=== PATIENT | male | born 1985 | race Caucasian/White ===

== ENCOUNTER 2021-04-23 13:56 | Outpatient (REF) | payer OTHER, SELFPAY | END 2021-04-23 13:57 | disposition home or self-care (01) | LOC: HO.LNP 13:56 | PROVIDERS: Visit Provider Hospitalist | DX: B34.9 Viral infection, unspecified (principal); Z20.822 Contact with and (suspected) exposure to COVID-19 | CPT/HCPCS: U0003; U0005 ==

== ENCOUNTER 2021-08-13 15:07 | Outpatient (REF) | payer OTHER, SELFPAY ==
--- NOTE | ~2021-08-13 | XR_ITS ---
EXAMINATION: XR CHEST CLINICAL INFORMATION: Cough COMPARISON: None TECHNIQUE: 2 views of the chest were obtained. FINDINGS: No significant abnormality is noted involving the heart, lungs, mediastinum, bony thorax or soft tissues. XR/XR chest 2V IMPRESSION: Unremarkable examination.
== END 2021-08-13 15:08 | disposition home or self-care (01) ==
LOC: HO.HMGCX 15:07
PROVIDERS: Visit Provider Physician Assistant Medical
DX: R05.9 Cough, unspecified (principal)
CPT/HCPCS: 71046

== ENCOUNTER 2024-02-29 13:36 | Inpatient (IN) | payer OTHER, SELFPAY ==
[2024-02-29] VITALS (9 sets, daily range): BP systolic 118–168; BP diastolic 65–82; PULSE 86–121; RESP 13–30; TEMP 36.1–39.4; O2SAT 93–98; BMI 60.1
--- NOTE | ~2024-02-29 | US_ITS ---
EXAMINATION: US VENOUS ULTRASOUND WITH DOPPLER LOWER EXTREMITY, BILATERAL CLINICAL INFORMATION: Pain and swelling bilateral lower extremities COMPARISON: None available. TECHNIQUE: Ultrasound of the deep veins is performed from the hip to the calf with compression sonography and color and pulse Doppler assessment. Spectral analysis with color-flow imaging is performed. FINDINGS: RIGHT: There is normal venous compression and respiratory variation and augmented flow. The visualized common femoral vein, superficial femoral vein, profunda femoral vein, popliteal vein show no evidence of deep venous thrombosis. The calf veins are not visualized due to body habitus/swelling. LEFT: There is normal venous compression and respiratory variation and augmented flow. The visualized common femoral vein, superficial femoral vein, profunda femoral vein, popliteal vein, and the trifurcation region shows no evidence of deep venous thrombosis. The calf veins are not visualized due to body habitus/swelling. US/US venous duplex LE BI IMPRESSION: No DVT demonstrated in the bilateral lower extremities.
--- NOTE | ~2024-02-29 | XR_ITS ---
EXAMINATION: XR CHEST CLINICAL INFORMATION: Fever COMPARISON: 08/13/2021 TECHNIQUE: Frontal view of the chest was obtained. FINDINGS: No significant abnormality is noted involving the heart, lungs, mediastinum, bony thorax or soft tissues. XR/XR chest 1V IMPRESSION: Unremarkable examination.
--- NOTE | 2024-02-29 14:16 | ED_ITS ---
HPI - Fever General Chief Complaint: Fever Stated Complaint: SWELLING TO BLE,WKNSS,BRAIN FOG,LOSS OF APPETITE Time Seen by Provider: 02/29/24 13:45 Source: patient Mode of arrival: ambulatory Limitations: no limitations History of Present Illness ED Provider: PATY MITCHELL Narrative: 38 yo male with obesity, anxiety, remote PE not on DOAC for a few years, has had open sore on RLE he has been managing at home since the start of January last night he got abrupt onset of bodyaches, chills, some nausea and noted the area near his wound was much more red compared to baseline. He has swollen legs at baseline. MD elicited complaint: fever Onset (ago): day(s) (last night) Exacerbating factors: exertion Relieving factors: nothing Associated symptoms: chills, rigors, myalgias and nausea Treatments prior to arrival fever: none Related Data Home Medications ?Medication ?Instructions ?Recorded ?Confirmed bupropion HCl 150 mg tablet,12 hr 150 mg PO DAILY 08/13/21 sustained-release methylphenidate HCl 54 mg 54 mg PO QAM 08/13/21 tablet,extended release 24 hr Previous Rx's ?Medication ?Instructions ?Recorded albuterol sulfate 90 mcg/actuation 2 puff inhalation Q6H PRN 08/13/21 aerosol inhaler shortness of breath or wheezing #6.7 grams doxycycline hyclate 100 mg tablet 100 mg PO BID 7 days #14 tabs 08/13/21 prednisone 20 mg tablet 40 mg (2 x 20 mg) PO DAILY 5 days 08/13/21 #10 tabs Allergies Allergy/AdvReac Type Severity Reaction Status Date / Time dog dander Allergy Mild itching Verified 02/29/24 13:53 sneezing Review of Systems 2 Review of Systems: Constitutional : pos Fever, pos Chills ENT/Mouth : No sore throat, No Rhinorrhea Eyes: No Eye Pain, No Swelling, No Redness Cardiovascular : No Chest Pain, No SOB Respiratory : No Cough, No Sputum Gastrointestinal : No Nausea, No Vomiting, No Diarrhea, No abdominal Pain Genitourinary : No Dysuria, No Hematuria Musculoskeletal : No joint pain, No Myalgias, No Joint Swelling Skin : pos Skin Lesions, positive skin rash Neuro : No Weakness, No Numbness, No Headache Psych : No Anxiety, No Depression All other systems reviewed and are negative [facility] Past Medical History Attestation statement: The following information was validated with the patient. Source: old records reviewed Medical History Leg edema Obesity Pulmonary embolism Social History Social History Alcohol intake: current Patient Tobacco Use Status: Never used Tobacco Smoked in Last 30 Days: No Use of substances other than those prescribed or required for medical reasons: No Advance Directives: No Advance Directives Information Provided: No Do you have a plan to hurt others: No Plan Physical Exam 2 Vital Signs: Vital Signs: Last Vital Signs Temp 103 F H 02/29/24 13:47 Pulse 119 H 02/29/24 14:07 Resp 22 H 02/29/24 14:07 BP 153/69 H 02/29/24 14:07 Pulse Ox 96 02/29/24 14:07 O2 Del Method Room Air 02/29/24 14:07 BMI result Body Mass Index 60.1 Appearance: Alert. Oriented X3. No acute distress. Eyes: Pupils equal, round and reactive to light. ENT: Pharynx normal. Neck: Normal inspection. Neck supple. CVS: tachycardic heart rate and rhythm. Pulses normal. Respiratory: No respiratory distress. Breath sounds normal. Abdomen: Soft and nontender. obese Skin: Skin warm and dry. Normal skin color. Normal skin turgor. Extremities: 1-2+ bilateral pitting lower extremity edema. Heat, redness, ttp along R leg no abscess noted no crepitus. see pictures below Neuro: Oriented X 3. No motor deficit. No sensory deficit. Medications Administered Discontinued Medications Generic Name Dose Route Start Last Admin Trade Name Vladimir PRN Reason Stop Dose Admin Acetaminophen 650 mg 02/29/24 14:03 02/29/24 14:35 Acetaminophen 325 Mg Tablet PO 02/29/24 14:04 650 mg ONCE ONE Administration Sodium Chloride 500 mls @ 500 mls/hr 02/29/24 13:58 02/29/24 14:35 Ns IV 02/29/24 14:57 500 mls/hr .Q1H ONE Administration Piperacillin Sod/Tazobactam 50 mls @ 100 mls/hr 02/29/24 14:03 02/29/24 15:11 Sod 3.375 gm/ Sodium Chloride IV 02/29/24 14:32 Infused ONCE ONE Infusion Ondansetron HCl 4 mg 02/29/24 14:03 02/29/24 14:35 Ondansetron Hcl 4 Mg/2 Ml Vial IVPUSH 02/29/24 14:04 4 mg ONCE ONE Administration Medical Decision Making Medical Decision Making [facility] Narrative: 38 yo male with obesity, anxiety, remote PE not on DOAC for a few years now here with RLE cellulitis fevers and concern for infection - labs, lactic acid, cultures, empiric zosyn and DVT study ordered. Possible admit given workup but he is febrile tachycardic and suspect he might require IV antibiotics. Differential Diagnosis Differential Diagnoses: The differential diagnosis associated with the presentation includes cellulitis, fever, viral syndrome, DVT Admission/Observation Consideration of admission/observation: Escalation of care including admission/observation considered admit given sepsis and need for IV antibiotic Consult Healthcare Provider Management of the patient was discussed with: Hospitalist (will admit) Lab Data [facility] Lab Attestation statement: I reviewed the patient's lab results. 02/29/24 14:16 02/29/24 14:16 Labs: Lab Results 02/29/24 Range/Units 14:16 WBC 23.1 H (4.8-10.8) X10*3/uL RBC 5.25 (4.60-5.80) X10*6/uL Hgb 12.0 L (14.0-18.0) g/dl Hct 36.8 L (42.0-52.0) % MCV 70.1 L (80.0-98.0) fL MCH 22.9 L (27.0-33.0) pg MCHC 32.6 (31.0-36.0) g/dl RDW 17.3 H (11.0-16.0) % Plt Count 328 (160-400) X10*3/uL MPV 9.0 L (9.4-12.4) fL Immature Gran % (Auto) Cancelled Neut % (Auto) Cancelled Lymph % (Auto) Cancelled [place] % (Auto) Cancelled Eos % (Auto) Cancelled Baso % (Auto) Cancelled Lymph # (Auto) Cancelled [place] # (Auto) Cancelled Eos # (Auto) Cancelled Baso # (Auto) Cancelled Abs Immat Gran (auto) Cancelled Absolute Neuts (auto) Cancelled Absolute Nucleated RBC 0.000 (0.0-0.012) X10*3/uL Nucleated RBC % (auto) 0.0 (0.0-0.2) /100WBC Neutrophils % (Manual) 83 H (45-73) % Band Neutrophils % 12 H (3-5) % Lymphocytes % (Manual) 3 L (20-40) % Monocytes % (Manual) 1 L (2-11) % Basophils % (Manual) 1 (0-2) % Abs Neuts (Manual) 21.9 H (2.0-8.3) X10*3/uL Lymphocytes # (Manual) 0.7 L (1.2-4.9) X10*3/uL Monocytes # (Manual) 0.2 (0.1-1.2) X10*3/uL Basophils # (Manual) 0.2 (0.0-0.2) X10*3/uL Platelet Estimate NORMAL (NORMAL) Plt Morphology Comment NORMAL RBC Morphology NOTED Hypochromasia 1+ (5-14) /OIF Microcytosis 1+ (5-14) /OIF Sodium 137 (135-145) mmol/L Potassium 3.7 (3.3-5.1) mmol/L Chloride 105 (96-108) mmol/L Carbon Dioxide 21 L (22-29) mmol/L Anion Gap 15 (12-20) BUN 11 (9-16) mg/dL Creatinine 0.97 (0.5-1.4) mg/dL Estim Creat Clear Calc 196.0 Estimated GFR > 60 Random Glucose 128 H (60-115) mg/dL Lactic Acid 1.2 (0.5-2.0) mmol/L Calcium 8.6 (8.4-10.2) mg/dL Magnesium 1.7 (1.6-2.6) mg/dL Total Bilirubin 0.8 (0.0-1.0) mg/dL Direct Bilirubin 0.3 (0.0-0.5) mg/dL AST 21 (5-37) U/L ALT 31 (0-40) U/L Alkaline Phosphatase 62 (39-117) U/L Troponin I High Sens 4.5 (<3.5-35.0) ng/L B-Natriuretic Peptide 56 (<100) pg/mL Total Protein 8.5 H (6.5-8.0) g/dL Albumin 4.0 (3.5-5.0) g/dL Procalcitonin 1.65 ng/mL Influenza Type A (PCR) NEGATIVE (Negative) Influenza Type B (PCR) NEGATIVE (Negative) RSV RNA Qual (PCR) NEGATIVE (Negative) SARS-CoV-2 RNA (RT-PCR) NEGATIVE (Negative) Independent Interpretation I performed an independent interpretation of an: Plain X-Ray (no pneumonia) and Ultrasound (no DVT noted) Radiology Impression Discussion of test interpretation with radiology: I have reviewed the radiologist's reading. External Record Review External record reviewed: Outpatient record Critical Care Time Critical Care Time Critical Care Time: Yes Total Critical Care Time: 35 Attestation: review of records, sepsis protocol, admission I attest to this time spent taking care of the patient Discharge Plan Discharge Clinical Impression: Fever and chills Cellulitis Qualifiers: Site of cellulitis: extremity Site of cellulitis of extremity: lower extremity Laterality: right Qualified Code(s): L03.115 - Cellulitis of right lower limb Elevated WBC count Qualifiers: Leukocytosis type: bandemia Qualified Code(s): D72.825 - Bandemia Patient Disposition: Admitted As Inpatient Print Language: Kiswahili
[2024-02-29 14:27] LABS: Hematocrit 36.8 % (42.0-52.0); Mean Corpuscular HGB Conc 32.6 g/dl (31.0-36.0); Mean Corpuscular Hemoglobin 22.9 pg (27.0-33.0); Mean Corpuscular Volume 70.1 fL (80.0-98.0); Platelet Count 328 X10*3/uL (160-400); Red Blood Count 5.25 X10*6/uL (4.60-5.80); Red Cell Distribution Width 17.3 % (11.0-16.0); White Blood Count 23.1 X10*3/uL (4.8-10.8)
[2024-02-29] MEDS: 0.9 % Sodium Chloride 500 ML IV (14:35)
[2024-02-29] MEDS: Piperacillin Sodium/Tazobactam 3.375 GM in 0.9 % Sodium Chloride 50 ML IV (14:35)
[2024-02-29] MEDS: Acetaminophen 325 MG TABLET 650 MG PO ×2 (14:35→19:35)
[2024-02-29] MEDS: ondansetron HCL 4 MG/2 ML VIAL IVPUSH (14:35)
[2024-02-29 14:40] LABS: Lactic Acid 1.2 mmol/L (0.5-2.0)
[2024-02-29 14:48] LABS: B Type Natriuretic Peptide 56 pg/mL (<100); Troponin-I High Sensitivity 4.5 ng/L (<3.5-35.0)
[2024-02-29 14:52] LABS: Alanine Aminotransferase 31 U/L (0-40); Alkaline Phosphatase 62 U/L (39-117); Anion Gap 15 (12-20); Aspartate Amino Transferase 21 U/L (5-37); Bilirubin Direct 0.3 mg/dL (0.0-0.5); Bilirubin Total 0.8 mg/dL (0.0-1.0); Blood Urea Nitrogen 11 mg/dL (9-16); Calcium 8.6 mg/dL (8.4-10.2); Carbon Dioxide 21 mmol/L (22-29); Chloride 105 mmol/L (96-108); Estimated Glomerular Filt Rate > 60; Glucose Random 128 mg/dL (60-115); Magnesium 1.7 mg/dL (1.6-2.6); Neutrophils Percent Manual 83 % (45-73); Potassium 3.7 mmol/L (3.3-5.1); Sodium 137 mmol/L (135-145); Total Protein 8.5 g/dL (6.5-8.0)
[2024-02-29 14:53] LABS: Band Neutrophils Percent 12 % (3-5); Basophils Abs Manual 0.2 X10*3/uL (0.0-0.2); Basophils Percent Manual 1 % (0-2); Lymphocytes Absolute Manual 0.7 X10*3/uL (1.2-4.9); Lymphocytes Percent Manual 3 % (20-40); Monocytes Absolute Manual 0.2 X10*3/uL (0.1-1.2); Monocytes Percent Manual 1 % (2-11); Neutrophils Absolute Manual 21.9 X10*3/uL (2.0-8.3)
[2024-02-29 14:55] LABS: Microcytosis 1+ (5-14) /OIF; RBC Morphology NOTED
[2024-02-29 14:57] LABS: Hypochromasia 1+ (5-14) /OIF; Platelet Estimate NORMAL (NORMAL); Platelet Morphology Comment NORMAL
[2024-02-29 15:07] LABS: Procalcitonin 1.65 ng/mL
[2024-02-29 15:17] LABS: Influenza A PCR NEGATIVE (Negative); Influenza B PCR NEGATIVE (Negative); Resp Syncy Virus RNA Qual PCR NEGATIVE (Negative); SARS COV2 PCR INHOUSE NEGATIVE (Negative)
[2024-02-29] MEDS: vancomycin/NS 2,000 MG/500 ML PLAST..BAG 250 MG IV (15:25)
--- NOTE | 2024-02-29 16:01 | P.HPHOSP_ITS ---
History of Present Illness Date of Service: 02/29/24 Attending physician on admission: Vamsi Aguirre Chief Complaint: leg infection 38-year-old male with history of hypertension noncompliant with antihypertensive agents, prediabetes, depression, who is morbidly obese with BMI greater than 60 presented to the ED earlier today for evaluation of an infection in the right lower extremity. He states last night while at work, he began experiencing rigors and some confusion with pain in the right lower extremity. He states he has had a nonhealing ulcer in the right lower leg for about 2 months but denies any purulent drainage. No fevers, chills. No hx diabetes known. No known history of MRSA. No hx IVDA. Since arrival, pt has been febrile to 103, tachycardic to 121, no hypotension. He has a leukocytosis of 23 with 12% bandemia. Renal function is normal, electrolyte levels normal. Procalcitonin 1.65. Venous duplex negative for DVT in the bilateral lower extremities. Chest x-ray unremarkable. In the ED, has been given Tylenol, IV Zosyn, IV vancomycin, and IV fluids. He will be admitted for further management of cellulitis in the right lower extremity with sepsis. Review of Systems 2 Review of Systems: Yes all other systems are reviewed and are negative [facility] Medical History Prediabetes Hypertension Leg edema Obesity Pulmonary embolism Social History Alcohol intake: current Patient Tobacco Use Status: Never used Tobacco Smoked in Last 30 Days: No Use of substances other than those prescribed or required for medical reasons: No Advance Directives: No Advance Directives Information Provided: No Do you have a plan to hurt others: No Plan Meds Allergies Allergy/AdvReac Type Severity Reaction Status Date / Time dog dander Allergy Mild itching Verified 02/29/24 13:53 sneezing Active Medications: Current Medications Acetaminophen (Acetaminophen 325 Mg Tablet) 650 mg PO Q6H PRN PRN Reason: Pain, Mild (Pain Scale 1-3), fever or headache Calcium Carbonate (Calcium Carbonate 750 Mg Tab.Chew) 750 mg PO Q4H PRN PRN Reason: Heartburn Enoxaparin Sodium (Enoxaparin Sodium 40 Mg/0.4 Ml Syringe) 40 mg SUBCUT Q24H [facility] Vancomycin HCl (Vancomycin/Ns) 2,000 mg in 500 mls @ 250 mls/hr IV ONCE ONE Stop: 02/29/24 16:52 Last Admin: 02/29/24 15:25 Dose: 250 mls/hr Sodium Chloride (Ns) 1,000 mls @ 100 mls/hr IVCONT .Q10H [place] Stop: 03/01/24 01:29 Cefazolin Sodium/Dextrose (Ancef) 2 gm in 50 mls @ 100 mls/hr IV Q8H [facility] Magnesium Hydroxide (Milk Of Magnesia 30 Ml Oral.Susp) 30 ml PO DAILY PRN PRN Reason: Constipation Melatonin (Melatonin 3 Mg Tablet) 6 mg PO BEDTIME PRN PRN Reason: Insomnia Pharmacy Consult (Consult Rx Vancomycin Dosing) 1 each MISCELLANE DAILY PRN PRN Reason: Consult order Sodium Chloride (0.9 % Sodium Chloride Flush 3 Ml Syringe) 3 ml IVFLUSH QSHIFT [facility] Home Medications ?Medication ?Instructions ?Recorded ?Confirmed ?Last Taken ?Type bupropion HCl 150 mg tablet,12 hr 150 mg PO DAILY 08/13/21 Unknown History sustained-release methylphenidate HCl 54 mg 54 mg PO QAM 08/13/21 Unknown History tablet,extended release 24 hr lisinopril 20 1 tab PO DAILY 02/29/24 Unknown History mg-hydrochlorothiazide 12.5 mg tablet metformin 500 mg tablet 500 mg PO BID 02/29/24 Unknown History Physical Exam 2 Vital Signs and Narrative: Vital Signs: Last Vital Signs Temp 101 F H 02/29/24 15:58 Pulse 113 H 02/29/24 15:58 Resp 16 02/29/24 15:58 BP 131/71 02/29/24 15:58 Pulse Ox 95 02/29/24 15:58 O2 Del Method Room Air 02/29/24 15:58 BMI result Body Mass Index 60.1 Constitutional - Awake and Alert, No apparent distress Eyes - PERRLA, EOMI Cardiovascular - S1S2, RRR, No edema Respiratory - Normal lung expansion, Normal respiratory effort, No respiratory distress, CTA bilaterally Gastrointestinal - NT / ND; +BS; No rebound or guarding Extremities - no calf tenderness bilaterally, no swelling Skin - Warm/Dry. 3cm x 2.5 cm shallow venous ulcer and 1cm x 1cm venous ulcer right lower leg wihtout any purulent drainage with significant erythema and warmth from the R ankle to the R knee Neurological - Alert & oriented x3 Psychological - Appropriate affect Results Labs 02/29/24 14:16 02/29/24 14:16 Labs: Laboratory Results - last 24 hr 02/29/24 14:16 MCV 70.1 L MCH 22.9 L MCHC 32.6 RDW 17.3 H Plt Count 328 MPV 9.0 L Immature Gran % (Auto) Cancelled Neut % (Auto) Cancelled Lymph % (Auto) Cancelled [place] % (Auto) Cancelled Eos % (Auto) Cancelled Baso % (Auto) Cancelled Lymph # (Auto) Cancelled [place] # (Auto) Cancelled Eos # (Auto) Cancelled Baso # (Auto) Cancelled Abs Immat Gran (auto) Cancelled Absolute Neuts (auto) Cancelled Absolute Nucleated RBC 0.000 Nucleated RBC % (auto) 0.0 Neutrophils % (Manual) 83 H Band Neutrophils % 12 H Lymphocytes % (Manual) 3 L Monocytes % (Manual) 1 L Basophils % (Manual) 1 Abs Neuts (Manual) 21.9 H Lymphocytes # (Manual) 0.7 L Monocytes # (Manual) 0.2 Basophils # (Manual) 0.2 Platelet Estimate NORMAL Plt Morphology Comment NORMAL RBC Morphology NOTED Hypochromasia 1+ (5-14) Microcytosis 1+ (5-14) Anion Gap 15 Estim Creat Clear Calc 196.0 Estimated GFR > 60 Random Glucose 128 H Lactic Acid 1.2 Calcium 8.6 Magnesium 1.7 Total Bilirubin 0.8 Direct Bilirubin 0.3 AST 21 ALT 31 Alkaline Phosphatase 62 Troponin I High Sens 4.5 B-Natriuretic Peptide 56 Total Protein 8.5 H Albumin 4.0 Procalcitonin 1.65 Influenza Type A (PCR) NEGATIVE Influenza Type B (PCR) NEGATIVE RSV RNA Qual (PCR) NEGATIVE SARS-CoV-2 RNA (RT-PCR) NEGATIVE Imaging Radiologist's Impressions: Impressions Chest X-Ray 02/29/24 14:25 IMPRESSION: Unremarkable examination. Venous Duplex 02/29/24 14:49 IMPRESSION: No DVT demonstrated in the bilateral lower extremities. Assessment and Plan (1) Cellulitis: Qualifiers: Laterality: right Site of cellulitis: extremity Site of cellulitis of extremity: lower extremity Qualified Code(s): L03.115 - Cellulitis of right lower limb Status: Acute (2) Sepsis: Status: Acute Plan 38-year-old male with history of hypertension noncompliant with antihypertensive agents, remote hx PE no longer on ac, prediabetes, depression, who is morbidly obese with BMI greater than 60 admitted for further management of RLE cellulitis with sepsis. #RLE cellulitis with sepsis -leukocytosis 23, febrile to 103, tachycardic, tachypneic with 12% bandemia. No lactic acidosis or end-organ damage. No severe sepsis/shock -PCT 1.65. ESR/CRP pending -IV vancomycin and cefazolin (initiated 02/28) -MRSA nasal swab -wound care consult -follow CBC, cultures #Bilateral venous stasis dermatitis -technical support intern, plan as above # hypertension -noncompliant with antihypertensives. Was previously on lisinopril- hydrochlorothiazide. Consider resuming if remains hypertensive #Prediabetes -check hgb a1c #Depression -continue home meds #Morbid obesity -weight loss efforts discussed and encouraged dvt prophylaxis- lovenox full code pt requires inpt stay at least two midnights for management of extensive cellulitis involving 50% of extremity with sepsis in morbidly obese patient who will require iv abx and close monitoring of hemodynamics to prevent decompensation Quality Stroke Does the patient have a stroke diagnosis?: No VTE Prior VTE?: Yes VTE Risk Level:: Medical - moderate - high VTE Device Contraindication: Treatment Not Indicated VTE Drug Contraindication: N/A - Med Ordered
--- NOTE | 2024-02-29 16:19 | PHA.PROG ---
Admission Date/Time: February 29, 2024 15:57 Indication: Skin and skin structure Weight in k.3 kg Adjusted body weight in Kg: [place] body weight in Kg: Obesity Dosing Indication % IBW: BMI 60.1 Serum Creatinine - Last 168 Hours 02/29/24 14:16 Creatinine 0.97 Estimated CrCl and GFR - Last 168 Hours 02/29/24 14:16 Estim Creat Clear Calc 196.0 Estimated GFR > 60 Vancomycin Loading Dose: 2000 x1 Current Vancomycin Dosing Regimen: 1250 Q8H Vancomycin Monitoring using AUC goal of 400 - 600 range with trough as surrogate marker: 525 Date and Time for next Vancomycin Level to be drawn: 03/01 @1400 Pharmacist Comments on Vancomycin Plan: pt BMI is 60.1, stable renal function, predicted trough 17.2. Vancomycin dosing will take advantage of [employer] as a clinical decision support tool that uses Bayesian modeling to calculate individual patient's pharmacokinetic parameters and forecast the patient's drug concentration time course with the target goal AUC 24 range of 400 - 600 mg/L/hr.
[2024-02-29] MEDS: 0.9 % Sodium Chloride 1,000 ML 100 ML IVCONT (16:29)
[2024-02-29] MEDS: Enoxaparin Sodium 40 MG/0.4 ML SYRINGE SUBCUT (16:31)
--- NOTE | 2024-02-29 16:31 | PHA.MEDREC ---
Pharmacy Consult ? Medication Reconciliation Pharmacy has completed the medication reconciliation. Spoke to patient to confirm med list. Patient states he should be on Bupropion HCl 150 mg daily, Lisinopril HCTZ 20-12.5 mg daily, and Meformin 500 mg Bid, however he hasn't taken them in months. patient says not having his methylphenidate makes him forget to take his other medications. last claim date for Lisinapril and Metfromin was 05-23-23 and last fill for Methylphenidate was 01-10-2024.
[2024-02-29 16:58] LABS: Baso%MD 0.3 %; Eos%MD 0.2 %; IG%MD 0.8 %; Lymph%MD 3.6 %; Mono%MD 3.7 %; Neut%MD 91.4 %
[2024-02-29 17:03] LABS: C Reactive Protein 11.09 mg/dL (< or = 0.50)
[2024-02-29 17:47] LABS: Erythrocyte Sedimentation Rate 27 MM/HR (0-15)
[2024-02-29 18:23] LABS: MRSA Nasal PCR NEGATIVE (Negative); SA Nasal PCR NEGATIVE (Negative)
[2024-02-29] MEDS: ceFAZolin Sodium/Dextrose,Iso 2 GM/50 ML PIGGYBACK IV ×2 (18:39→23:48)
[2024-02-29] MEDS: Ibuprofen 800 MG TABLET PO (18:40)
--- NOTE | 2024-02-29 19:22 | PC.NURSE ---
this rn assumed care of pt, pt a&ox4, respirations even and unlabored. pt noted to be febrile at this time, pt previously received motrin; awaiting effects. pt sinus tachy on tele 110-115. provider aware of temperature.
[2024-02-29] MEDS: 0.9 % Sodium Chloride 1,000 ML 999 ML IV (19:35)
--- NOTE | 2024-02-29 19:36 | PC.NURSE ---
pt medicated per nov for fever, pt tolerated well with water. fluid bolus adminstered.
--- NOTE | 2024-02-29 20:52 | PC.NURSE ---
provider aware of pt reduced temperature.
[2024-03-01] VITALS (9 sets, daily range): BP systolic 132–146; BP diastolic 66–77; PULSE 78–113; RESP 14–20; TEMP 36.5–38.8; O2SAT 93–99
[2024-03-01] MEDS: vancomycin HCL 1,250 MG in 0.9 % Sodium Chloride 250 ML 166.67 MG IV ×2 (00:24→08:44)
[2024-03-01] MEDS: Acetaminophen 325 MG TABLET 650 MG PO ×3 (04:33→22:43)
[2024-03-01 06:16] LABS: MANUAL DIFF FLAG NO
[2024-03-01 06:20] LABS: Basophils Absolute Auto 0.1 X10*3/uL (0.0-0.2); Basophils Percent Auto 0.4 % (0-2); Eosinophils Absolute Auto 0.2 X10*3/uL (0.0-0.4); Eosinophils Percent Auto 1.3 % (0-4); Hematocrit 32.7 % (42.0-52.0); Hemoglobin 10.7 g/dl (14.0-18.0); Imm Gran Abs Auto 0.08 X10*3/uL (0.00-0.03); Imm Gran Pct Auto 0.6 % (0.0-0.4); Lymphocytes Absolute Auto 0.6 X10*3/uL (1.2-4.9); Mean Corpuscular HGB Conc 32.7 g/dl (31.0-36.0); Mean Corpuscular Hemoglobin 23.3 pg (27.0-33.0); Mean Corpuscular Volume 71.2 fL (80.0-98.0); Mean Platelet Volume 8.7 fL (9.4-12.4); Monocytes Absolute Auto 0.8 X10*3/uL (0.1-1.2); Monocytes Percent Auto 5.8 % (2-11); Neutrophils Absolute Auto 12.4 x10*3/uL (2.0-8.3); Neutrophils Percent Auto 87.9 % (45-73); Platelet Count 259 X10*3/uL (160-400); Red Blood Count 4.59 X10*6/uL (4.60-5.80); Red Cell Distribution Width 17.4 % (11.0-16.0); White Blood Count 14.1 X10*3/uL (4.8-10.8)
[2024-03-01 06:30] LABS: Estimated Average Glucose 131 mg/dL; Hemoglobin A1c % 6.2 % (<6.0)
[2024-03-01 06:36] LABS: Anion Gap 10 (12-20); Blood Urea Nitrogen 13 mg/dL (9-16); Carbon Dioxide 22 mmol/L (22-29); Chloride 109 mmol/L (96-108); Creatinine Clr Calc Pharmacy 200.1; Estimated Glomerular Filt Rate > 60; Glucose Random 123 mg/dL (60-115); Potassium 3.5 mmol/L (3.3-5.1); Sodium 137 mmol/L (135-145)
[2024-03-01] MEDS: 0.9 % Sodium Chloride Flush 3 ML SYRINGE IVFLUSH ×2 (08:46→15:50)
[2024-03-01 08:51] LABS: Appearance Urine Cloudy; Color Urine Dark Yellow; Glucose Urine UA Negative (Negative); Leukocyte Esterase Urine Negative (Negative); Nitrite Urine Negative (Negative); Specific Gravity - Urine >= 1.030 (1.005-1.025); UMIC TRIGGER UACC YES; Urine Blood Trace (Negative); Urine Ketones 15 mg/dL (Negative); Urine Protein 100 (2+) mg/dL (Neg-Trace)
[2024-03-01 08:55] LABS: Bacteria Urine None Seen (None Seen); Hyaline Casts Urine 0-2 /LPF (0-2); WBC Urine 0-5 /HPF (0-5)
--- NOTE | 2024-03-01 09:02 | MHC.CM.PN ---
PATIENT LIVES IN A HOME W/ HIS MOTHER. FUNCTIONALLY INDEPENDENT. DENIES USE OF DME OR SERVICES. PCP DAVID CHRISTIANSON MD NO HCP. CM PROVIDED EDUCATION AND OFFERED ASSISTANCE. PATIENT DECLINED, WOULD LIKE TO SPEAK W/ HIS MOTHER & SISTER PILI FIRST. DP: GOAL IS HOME SELF CARE. COUSIN TO TRANSPORT. CM WILL CONTINUE TO FOLLOW.
[2024-03-01] MEDS: ceFAZolin Sodium/Dextrose,Iso 2 GM/50 ML PIGGYBACK IV ×2 (11:01→18:29)
--- NOTE | 2024-03-01 14:13 | HO.PM.IMPN ---
Subjective Subjective Date of Service: 03/01/24 Interval History: Feeling better had low-grade fever last night continued to have right lower extremity redness, swelling and mild discomfort, denies nausea, no vomiting tolerating diet no acute issues overnight. Review of Systems All other system reviewed and negative. Physical Exam Vital Signs: Vital Signs: Last Vital Signs Temp 97.8 F 03/01/24 07:48 Pulse 88 03/01/24 07:48 Resp 15 03/01/24 07:48 BP 132/66 03/01/24 07:48 Pulse Ox 95 03/01/24 07:48 O2 Del Method Room Air 03/01/24 07:48 BMI result Body Mass Index 60.1 Const: Other: General awake alert x3, in no acute distress. Neck is supple no JVD. CVS regular rate rhythm, Respiratory lungs clear to auscultation, no respiratory distress, no wheeze, no rhonchi. Gastrointestinal abdomen soft, nontender, bowel sounds audible Extremities right lower extremity redness/swelling/warmth extending up to right knee. Left lower extremity swelling with no redness Neuro non focal Psych appropriate affect Objective Data Active Medications Acetaminophen (Acetaminophen 325 Mg Tablet) 650 mg PO Q6H PRN PRN Reason: Pain, Mild (Pain Scale 1-3) Last Admin: 03/01/24 04:33 Dose: 650 mg Documented By: CALVIN Calcium Carbonate (Calcium Carbonate 750 Mg Tab.Chew) 750 mg PO Q4H PRN PRN Reason: Heartburn Enoxaparin Sodium (Enoxaparin Sodium 40 Mg/0.4 Ml Syringe) 40 mg SUBCUT Q24H [facility] Last Admin: 02/29/24 16:31 Dose: 40 mg Documented By: DARRELL Vancomycin HCl 1,250 mg/ (Sodium Chloride) 250 mls @ 166.667 mls/hr IV Q8H [facility] Last Infusion: 03/01/24 10:25 Dose: Infused Documented By: CHAD Cefazolin Sodium/Dextrose (Ancef) 2 gm in 50 mls @ 100 mls/hr IV Q8H [facility] Last Infusion: 03/01/24 11:34 Dose: Infused Documented By: CHAD Ibuprofen (Ibuprofen 800 Mg Tablet) 800 mg PO Q8H PRN PRN Reason: Fever Last Admin: 02/29/24 18:40 Dose: 800 mg Documented By: DARRELL Magnesium Hydroxide (Milk Of Magnesia 30 Ml Oral.Susp) 30 ml PO DAILY PRN PRN Reason: Constipation Melatonin (Melatonin 3 Mg Tablet) 6 mg PO BEDTIME PRN PRN Reason: Insomnia Pharmacy Consult (Consult Rx Vancomycin Dosing) 1 each MISCELLANE DAILY PRN PRN Reason: Consult order Sodium Chloride (0.9 % Sodium Chloride Flush 3 Ml Syringe) 3 ml IVFLUSH QSHIFT [facility] Last Admin: 03/01/24 08:46 Dose: 3 ml Documented By: CHAD Labs 03/01/24 06:04 03/01/24 06:04 Labs: Laboratory Results - last 24 hr 02/29/24 02/29/24 03/01/24 14:16 16:44 06:04 MCV 70.1 L 71.2 L MCH 22.9 L 23.3 L MCHC 32.6 32.7 RDW 17.3 H 17.4 H Plt Count 328 259 MPV 9.0 L 8.7 L Immature Gran % (Auto) Cancelled 0.6 H Neut % (Auto) Cancelled 87.9 H Lymph % (Auto) Cancelled 4.0 L [place] % (Auto) Cancelled 5.8 Eos % (Auto) Cancelled 1.3 Baso % (Auto) Cancelled 0.4 Lymph # (Auto) Cancelled 0.6 L [place] # (Auto) Cancelled 0.8 Eos # (Auto) Cancelled 0.2 Baso # (Auto) Cancelled 0.1 Abs Immat Gran (auto) Cancelled 0.08 H Absolute Neuts (auto) Cancelled 12.4 H Absolute Nucleated RBC 0.000 0.000 Nucleated RBC % (auto) 0.0 0.0 Neutrophils % (Manual) 83 H Band Neutrophils % 12 H Lymphocytes % (Manual) 3 L Monocytes % (Manual) 1 L Basophils % (Manual) 1 Abs Neuts (Manual) 21.9 H Lymphocytes # (Manual) 0.7 L Monocytes # (Manual) 0.2 Basophils # (Manual) 0.2 Platelet Estimate NORMAL Plt Morphology Comment NORMAL RBC Morphology NOTED Hypochromasia 1+ (5-14) Microcytosis 1+ (5-14) ESR 27 H Anion Gap 15 10 L Estim Creat Clear Calc 196.0 200.1 Estimated GFR > 60 > 60 Random Glucose 128 H 123 H Estimat Average Glucose Hemoglobin A1c % Lactic Acid 1.2 Calcium 8.6 8.0 L D Magnesium 1.7 Total Bilirubin 0.8 Direct Bilirubin 0.3 AST 21 ALT 31 Alkaline Phosphatase 62 Troponin I High Sens 4.5 C-Reactive Protein 11.09 H B-Natriuretic Peptide 56 Total Protein 8.5 H Albumin 4.0 Procalcitonin 1.65 Urine Color Urine Appearance Urine pH Ur Specific [place] Urine Protein Urine Glucose (UA) Urine Ketones Urine Blood Urine Nitrite Ur Leukocyte Esterase Urine RBC Urine WBC Ur Squamous Epith Cells Urine Bacteria Hyaline Casts Nasal Screen MRSA (PCR) NEGATIVE Nasal S. aureus Screen NEGATIVE Nasal MRSA/S.aureus Interp SEE NOTE Influenza Type A (PCR) NEGATIVE Influenza Type B (PCR) NEGATIVE RSV RNA Qual (PCR) NEGATIVE SARS-CoV-2 RNA (RT-PCR) NEGATIVE 03/01/24 03/01/24 06:05 08:30 MCV MCH MCHC RDW Plt Count MPV Immature Gran % (Auto) Neut % (Auto) Lymph % (Auto) [place] % (Auto) Eos % (Auto) Baso % (Auto) Lymph # (Auto) [place] # (Auto) Eos # (Auto) Baso # (Auto) Abs Immat Gran (auto) Absolute Neuts (auto) Absolute Nucleated RBC Nucleated RBC % (auto) Neutrophils % (Manual) Band Neutrophils % Lymphocytes % (Manual) Monocytes % (Manual) Basophils % (Manual) Abs Neuts (Manual) Lymphocytes # (Manual) Monocytes # (Manual) Basophils # (Manual) Platelet Estimate Plt Morphology Comment RBC Morphology Hypochromasia Microcytosis ESR Anion Gap Estim Creat Clear Calc Estimated GFR Random Glucose Estimat Average Glucose 131 Hemoglobin A1c % 6.2 H Lactic Acid Calcium Magnesium Total Bilirubin Direct Bilirubin AST ALT Alkaline Phosphatase Troponin I High Sens C-Reactive Protein B-Natriuretic Peptide Total Protein Albumin Procalcitonin Urine Color Dark Yellow Urine Appearance Cloudy Urine pH 6.0 Ur Specific [place] >= 1.030 H Urine Protein 100 (2+) H Urine Glucose (UA) Negative Urine Ketones 15 Urine Blood Trace H Urine Nitrite Negative Ur Leukocyte Esterase Negative Urine RBC 11-20 H Urine WBC 0-5 Ur Squamous Epith Cells 11-20 Urine Bacteria None Seen Hyaline Casts 0-2 Nasal Screen MRSA (PCR) Nasal S. aureus Screen Nasal MRSA/S.aureus Interp Influenza Type A (PCR) Influenza Type B (PCR) RSV RNA Qual (PCR) SARS-CoV-2 RNA (RT-PCR) Assessment and Plan (1) Sepsis: Status: Acute (2) Fever and chills: Status: Acute (3) Elevated WBC count: Status: Acute Plan 38-year-old male with history of hypertension noncompliant with antihypertensive agents, remote hx PE no longer on ac, prediabetes, depression, who is morbidly obese with BMI greater than 60 admitted for further management of RLE cellulitis with sepsis. #RLE cellulitis with sepsis -on admission leukocytosis 23, febrile to 103, tachycardic, tachypneic with 12% bandemia. No lactic acidosis or end-organ damage. No severe sepsis/shock, PCT 1.65, ESR 27/CRP 11.09 -WBC trending down, no recurrent high-grade fevers -MRSA nasal swab negative -continue IV vancomycin and cefazolin (initiated 02/28), add IV Lasix -follow CBC, cultures, keep legs elevated -ID consult #Bilateral venous stasis dermatitis -wound care # hypertension -noncompliant with antihypertensives, Was previously on lisinopril-hydrochlorothiazide, blood pressure is stable, continue to monitor blood pressure. #Prediabetes -hgb a1c 6.2 recommend low-calorie diet and weight loss #Depression -stable, continue home meds #Morbid obesity -weight loss efforts discussed and encouraged dvt prophylaxis- lovenox full code pt requires continued inpt stay for management of extensive cellulitis involving 50% of extremity with sepsis in morbidly obese patient who will require iv abx and close monitoring of hemodynamics to prevent decompensation Quality Stroke Does the patient have a stroke diagnosis?: No VTE Prior VTE?: Yes VTE Risk Level:: Medical - moderate - high VTE Device Contraindication: Treatment Not Indicated VTE Drug Contraindication: N/A - Med Ordered
[2024-03-01] MEDS: Furosemide 20 MG/2 ML VIAL IVPUSH (14:38)
[2024-03-01] MEDS: Enoxaparin Sodium 40 MG/0.4 ML SYRINGE SUBCUT (15:49)
[2024-03-01] MEDS: vancomycin HCL 1,000 MG in 0.9 % Sodium Chloride 250 ML 270 MG IV (15:51)
[2024-03-02] MEDS: 0.9 % Sodium Chloride Flush 3 ML SYRINGE IVFLUSH ×4 (00:14→20:18)
[2024-03-02] MEDS: ceFAZolin Sodium/Dextrose,Iso 2 GM/50 ML PIGGYBACK IV ×2 (02:33→11:16)
[2024-03-02 02:59] VITALS: BP 154/75; PULSE 88; RESP 19; TEMP 36.1; O2SAT 96
[2024-03-02 06:29] LABS: Creatinine Clr Calc Pharmacy 226.3; Estimated Glomerular Filt Rate > 60
[2024-03-02 07:24] VITALS: BP 144/86; PULSE 87; RESP 20; TEMP 36.7; O2SAT 96
[2024-03-02] MEDS: vancomycin HCL 1,000 MG in 0.9 % Sodium Chloride 250 ML 270 MG IV ×2 (07:26)
--- NOTE | 2024-03-02 10:57 | MHC.CM.PN ---
EMR reviewed. Per MD rounds patient not medically cleared for dc. No change to dc plan. CM will continue to follow.
--- NOTE | 2024-03-02 13:22 | HO.PM.IMPN ---
Subjective Subjective Date of Service: 03/02/24 Interval History: Being followed for extensive right lower extremity cellulitis, complaining of feeling feverish, complaining of scratchy throat and swollen uvula, right lower extremity discomfort swelling and redness. Review of Systems All other system reviewed and are negative. Physical Exam Vital Signs: Vital Signs: Last Vital Signs Temp 98.0 F 03/02/24 07:24 Pulse 87 03/02/24 07:24 Resp 20 03/02/24 07:24 BP 144/86 H 03/02/24 07:24 Pulse Ox 96 03/02/24 07:24 O2 Del Method Room Air 03/02/24 07:24 BMI result Body Mass Index 60.1 Const: Other: General awake alert x3, in no acute distress. Neck is supple no JVD. CVS regular rate rhythm, Respiratory lungs clear to auscultation, no respiratory distress, no wheeze, no rhonchi. Gastrointestinal abdomen soft, nontender, bowel sounds audible Extremities stable right lower extremity redness/swelling/warmth extending up to right knee. Left lower extremity swelling with no redness Neuro non focal Psych appropriate affect Objective Data Active Medications Acetaminophen (Acetaminophen 325 Mg Tablet) 650 mg PO Q6H PRN PRN Reason: Pain, Mild (Pain Scale 1-3) Last Admin: 03/01/24 22:43 Dose: 650 mg Documented By: CALVIN Calcium Carbonate (Calcium Carbonate 750 Mg Tab.Chew) 750 mg PO Q4H PRN PRN Reason: Heartburn Enoxaparin Sodium (Enoxaparin Sodium 40 Mg/0.4 Ml Syringe) 40 mg SUBCUT Q24H [facility] Last Admin: 03/01/24 15:49 Dose: 40 mg Documented By: CHAD Linezolid (Zyvox/D5w) 600 mg in 300 mls @ 300 mls/hr IV Q12H [facility] Ibuprofen (Ibuprofen 800 Mg Tablet) 800 mg PO Q8H PRN PRN Reason: Fever Last Admin: 02/29/24 18:40 Dose: 800 mg Documented By: DARRELL Magnesium Hydroxide (Milk Of Magnesia 30 Ml Oral.Susp) 30 ml PO DAILY PRN PRN Reason: Constipation Melatonin (Melatonin 3 Mg Tablet) 6 mg PO BEDTIME PRN PRN Reason: Insomnia Pharmacy Consult (Consult Rx Vancomycin Dosing) 1 each MISCELLANE DAILY PRN PRN Reason: Consult order Sodium Chloride (0.9 % Sodium Chloride Flush 3 Ml Syringe) 3 ml IVFLUSH QSHIFT [facility] Last Admin: 03/02/24 07:30 Dose: 3 ml Documented By: CHAD Labs 03/01/24 06:04 03/02/24 05:29 Labs: Laboratory Results - last 24 hr 03/01/24 03/02/24 14:02 05:29 Hold Purple Top SEE NOTE Estim Creat Clear Calc 226.3 Estimated GFR > 60 Random Vancomycin 14.0 L Microbiology Microbiology Results: Microbiology 02/29/24 14:33 Blood Culture - Preliminary Blood - Venous No growth after 24 hours. 02/29/24 14:16 Blood Culture - Preliminary Blood - Venous No growth after 24 hours. Assessment and Plan (1) Sepsis: Status: Acute (2) Fever and chills: Status: Acute (3) Elevated WBC count: Status: Acute Plan 38-year-old male with history of hypertension noncompliant with antihypertensive agents, remote hx PE no longer on ac, prediabetes, depression, who is morbidly obese with BMI greater than 60 admitted for further management of RLE cellulitis with sepsis. #RLE cellulitis with sepsis -on admission leukocytosis 23, febrile to 103, tachycardic, tachypneic with 12% bandemia. No lactic acidosis or end-organ damage. No severe sepsis/shock, PCT 1.65, ESR 27/CRP 11.09 -WBC trending down, no recurrent high-grade fevers -MRSA nasal swab negative, blood cultures x2 negative -case discussed with ID will discontinue IV vancomycin and cefazolin and place patient on less linezolid 600 q.12 hours continue IV diuretics, keep leg elevated -follow CBC, cultures, #Bilateral venous stasis dermatitis -wound care pending # hypertension -noncompliant with antihypertensives, Was previously on lisinopril-hydrochlorothiazide, blood pressure is stable, continue to monitor blood pressure. #Prediabetes -hgb a1c 6.2 recommend low-calorie diet and weight loss #Depression -stable, continue home meds #Morbid obesity -weight loss efforts discussed and encouraged dvt prophylaxis- lovenox full code pt requires continued inpt stay for management of extensive cellulitis involving 50% of extremity with sepsis in morbidly obese patient who will require iv abx and close monitoring of hemodynamics to prevent decompensation Quality Stroke Does the patient have a stroke diagnosis?: No VTE Prior VTE?: Yes VTE Risk Level:: Medical - moderate - high VTE Device Contraindication: Treatment Not Indicated VTE Drug Contraindication: N/A - Med Ordered
[2024-03-02] MEDS: Linezolid/D5W 600 MG/300 ML PIGGYBACK 300 MG IV (13:58)
--- NOTE | 2024-03-02 14:01 | MHC.CLN ---
NUTRITION VISITED WITH PATIENT DUE TO [employer] CLEARING AGENT CONCERNED ABOUT PATIENT SELF LIMITING FOOD CHOICES. CHANGED DIET TO REGULAR, ADDED ENSURE MAX PROTEIN BID (300 KCALS, 60 G PROTEIN). PATIENT PARTICULAR ABOUT FOOD CHOICES. DOES NOT WANT SUGAR, CARBS, OR STARCHES. REPORTED FASTING BEHAVIOR WELL FOLLOWING KETOGENIC DIET AT TIMES. BMI=60.1. RD TO FOLLOW UP FOR INTAKE AND FOOD CHOICES.
[2024-03-02 14:14] LABS: Iron 8 mcg/dL (45-160); Percent Iron Saturation 4 % (15-50); Total Iron Binding Capacity 208 mcg/dL (228-428); Unsaturated Iron Binding 200 ug/dL
[2024-03-02 14:17] LABS: Vancomycin Random 9.8 mcg/mL (15-20)
[2024-03-02] MEDS: Enoxaparin Sodium 40 MG/0.4 ML SYRINGE SUBCUT (15:12)
[2024-03-02 15:26] VITALS: BP 154/76; PULSE 94; RESP 20; TEMP 36.9; O2SAT 96
[2024-03-02] MEDS: Acetaminophen 325 MG TABLET 650 MG PO (16:15)
[2024-03-02 17:05] VITALS: BP 154/76
[2024-03-02] MEDS: Furosemide 40 MG/4 ML VIAL IVPUSH (17:05)
[2024-03-02 19:34] VITALS: BP 142/84; PULSE 88; RESP 16; TEMP 36.7; O2SAT 97
--- NOTE | 2024-03-02 23:38 | P.CNID_ITS ---
History of Present Illness Data of Consult Service Date: 03/02/24 Primary Care Provider: Lalo Wiseman MD HPI Reason for consult: RLE cellulitis He presents with RLE redness on 02/28. He had right lesion on leg,open sore since 01/12. He has remote PE 02/27 he has body aches,chills and WBC 23.1, He has lymphedema. Review of Systems 2 Review of Systems: Yes all other systems are reviewed and are negative PMFSH Past Medical History Medical History Prediabetes Hypertension Leg edema Obesity Pulmonary embolism Family History Family history: reviewed and not pertinent Social History Social History Household Members Other:: mother Housing: House Do you presently have visiting nurse or other home services: No Alcohol intake: current Patient Tobacco Use Status: Never used Tobacco service: No Meds Allergies Allergy/AdvReac Type Severity Reaction Status Date / Time dog dander Allergy Mild itching Verified 02/29/24 13:53 sneezing Active Medications: Current Medications Acetaminophen (Acetaminophen 325 Mg Tablet) 650 mg PO Q6H PRN PRN Reason: Pain, Mild (Pain Scale 1-3) Last Admin: 03/02/24 16:15 Dose: 650 mg Calcium Carbonate (Calcium Carbonate 750 Mg Tab.Chew) 750 mg PO Q4H PRN PRN Reason: Heartburn Enoxaparin Sodium (Enoxaparin Sodium 40 Mg/0.4 Ml Syringe) 40 mg SUBCUT Q24H [facility] Last Admin: 03/02/24 15:12 Dose: 40 mg Furosemide (Furosemide 20 Mg/2 Ml Vial) 20 mg IVPUSH DAILY [facility]; Protocol Linezolid (Zyvox/D5w) 600 mg in 300 mls @ 300 mls/hr IV Q12H [facility] Last Infusion: 03/02/24 15:00 Dose: Infused Ibuprofen (Ibuprofen 800 Mg Tablet) 800 mg PO Q8H PRN PRN Reason: Fever Last Admin: 02/29/24 18:40 Dose: 800 mg Magnesium Hydroxide (Milk Of Magnesia 30 Ml Oral.Susp) 30 ml PO DAILY PRN PRN Reason: Constipation Melatonin (Melatonin 3 Mg Tablet) 6 mg PO BEDTIME PRN PRN Reason: Insomnia Sodium Chloride (0.9 % Sodium Chloride Flush 3 Ml Syringe) 3 ml IVFLUSH QSHIFT [facility] Last Admin: 03/02/24 20:18 Dose: 3 ml Home Medications ?Medication ?Instructions ?Recorded ?Confirmed ?Last Taken ?Type No Known Home Meds 02/29/24 02/29/24 Unknown History Physical Exam 2 Vital Signs: Vital Signs: Last Vital Signs Temp 98.1 F 03/02/24 19:34 Pulse 88 03/02/24 19:34 Resp 16 03/02/24 19:34 BP 142/84 H 03/02/24 19:34 Pulse Ox 97 03/02/24 19:34 O2 Del Method Room Air 03/02/24 19:34 BMI result Body Mass Index 60.1 Const: General: cooperative HEENT: Head: Yes normal to inspection Face and sinus: Yes normal facial exam Mouth: Normal oral and palatal mucosa present Teeth and gingiva: d entition normal Eyes: General: appearance normal, both eyes and all related structures P upils: Equal, round and reactive pupils present Resp: Effort & Inspection: normal respiratory effort Cardio: Rate: regular rate Rhythm: regular rhythm GI: Palpation (GI): Soft to palpation and nontender : General: Yes no CVA tenderness Back/Spine/Pelvis: Back: no CVA tenderness Skin: General skin exam: no rashes or lesions noted Neuro: General: moves all extremities Cranial nerves: Yes Equal, round and reactive pupils present Extrem: Other: reddened legs superficial ulcer 3 x5 cm Psych: Appearance: grossly normal Results Labs 03/01/24 06:04 03/02/24 05:29 Labs: BMP 03/02/24 05:29 Creatinine 0.84 Microbiology Microbiology Results: Microbiology 02/29/24 14:33 Blood - Venous Blood Culture - Preliminary No growth after 48 hours. 02/29/24 14:16 Blood - Venous Blood Culture - Preliminary No growth after 48 hours. Assessment and Plan (1) Sepsis: Status: Acute (2) Elevated WBC count: Qualifiers: Leukocytosis type: bandemia Qualified Code(s): D72.825 - Bandemia Status: Acute (3) Cellulitis: Qualifiers: Laterality: right Site of cellulitis: extremity Site of cellulitis of extremity: lower extremity Qualified Code(s): L03.115 - Cellulitis of right lower limb Status: Acute Plan He has sepsis Leg source Lymphedema care, see Vascular linezolid 600 mg IV every 12h,switch to po for 10 day
[2024-03-03] VITALS (7 sets, daily range): BP systolic 132–145; BP diastolic 72–88; PULSE 80–92; RESP 18–22; TEMP 36.3–36.7; O2SAT 94–96
[2024-03-03] MEDS: Linezolid/D5W 600 MG/300 ML PIGGYBACK 300 MG IV ×2 (01:46→13:05)
[2024-03-03 06:26] LABS: Creatinine Clr Calc Pharmacy 231.9; Estimated Glomerular Filt Rate > 60
[2024-03-03] MEDS: Furosemide 20 MG/2 ML VIAL IVPUSH ×2 (08:30→14:38)
[2024-03-03] MEDS: 0.9 % Sodium Chloride Flush 3 ML SYRINGE IVFLUSH ×2 (08:30→16:39)
--- NOTE | 2024-03-03 13:55 | HO.PM.IMPN ---
Subjective Subjective Date of Service: 03/03/24 Interval History: Being followed for extensive right lower extremity cellulitis Persistent right lower extremity swelling, redness, no fevers, no chills, tolerating diet no other acute issues. Review of Systems All other system reviewed and are negative Physical Exam Vital Signs: Vital Signs: Last Vital Signs Temp 97.6 F 03/03/24 07:58 Pulse 80 03/03/24 07:58 Resp 22 H 03/03/24 07:58 BP 132/88 03/03/24 08:30 Pulse Ox 94 03/03/24 07:58 O2 Del Method Room Air 03/03/24 07:58 BMI result Body Mass Index 60.1 Const: Other: General awake alert x3, in no acute distress. Neck is supple no JVD. CVS regular rate rhythm, Respiratory lungs clear to auscultation, no respiratory distress, no wheeze, no rhonchi. Gastrointestinal abdomen soft, nontender, bowel sounds audible Extremities stable right lower extremity redness/swelling/warmth extending up to right knee. Left lower extremity swelling with no redness, small oval raised area lateral surface of right leg with no drainage, no abscess or induration. Neuro non focal Psych appropriate affect Objective Data Active Medications Acetaminophen (Acetaminophen 325 Mg Tablet) 650 mg PO Q6H PRN PRN Reason: Pain, Mild (Pain Scale 1-3) Last Admin: 03/02/24 16:15 Dose: 650 mg Documented By: CHAD Calcium Carbonate (Calcium Carbonate 750 Mg Tab.Chew) 750 mg PO Q4H PRN PRN Reason: Heartburn Enoxaparin Sodium (Enoxaparin Sodium 40 Mg/0.4 Ml Syringe) 40 mg SUBCUT Q24H [facility] Last Admin: 03/02/24 15:12 Dose: 40 mg Documented By: CHAD Furosemide (Furosemide 20 Mg/2 Ml Vial) 20 mg IVPUSH DAILY [facility]; Protocol Last Admin: 03/03/24 08:30 Dose: 20 mg Documented By: RADHA Linezolid (Zyvox/D5w) 600 mg in 300 mls @ 300 mls/hr IV Q12H [facility] Last Admin: 03/03/24 13:05 Dose: 300 mls/hr Documented By: RADHA Ibuprofen (Ibuprofen 800 Mg Tablet) 800 mg PO Q8H PRN PRN Reason: Fever Last Admin: 02/29/24 18:40 Dose: 800 mg Documented By: DARRELL Magnesium Hydroxide (Milk Of Magnesia 30 Ml Oral.Susp) 30 ml PO DAILY PRN PRN Reason: Constipation Melatonin (Melatonin 3 Mg Tablet) 6 mg PO BEDTIME PRN PRN Reason: Insomnia Sodium Chloride (0.9 % Sodium Chloride Flush 3 Ml Syringe) 3 ml IVFLUSH QSHIFT [facility] Last Admin: 03/03/24 08:30 Dose: 3 ml Documented By: RADHA Labs 03/01/24 06:04 03/03/24 05:28 Labs: Laboratory Results - last 24 hr 03/02/24 03/02/24 03/03/24 05:29 13:53 05:28 Hold Purple Top SEE NOTE Estim Creat Clear Calc 231.9 Estimated GFR > 60 Iron 8 L TIBC 208 L % Saturation 4 L Unsat Iron Binding 200 Random Vancomycin 9.8 L Microbiology Microbiology Results: Microbiology 02/29/24 14:33 Blood Culture - Preliminary Blood - Venous No growth after 48 hours. 02/29/24 14:16 Blood Culture - Preliminary Blood - Venous No growth after 48 hours. Assessment and Plan (1) Sepsis: Status: Acute (2) Fever and chills: Status: Acute (3) Elevated WBC count: Status: Acute Plan 38-year-old male with history of hypertension noncompliant with antihypertensive agents, remote hx PE no longer on ac, prediabetes, depression, who is morbidly obese with BMI greater than 60 admitted for further management of RLE cellulitis with sepsis. # extensive acute RLE cellulitis extending from right ankle to right medial thigh with sepsis -on admission leukocytosis 23, febrile to 103, tachycardic, tachypneic with 12% bandemia. No lactic acidosis or end-organ damage. No severe sepsis/shock, PCT 1.65, ESR 27/CRP 11.09 -WBC trending down, no recurrent high-grade fevers, redness and swelling gradually improving -MRSA nasal swab negative, blood cultures x2 negative times 48 hours -case discussed with ID will discontinue IV vancomycin and cefazolin after [address] patient on less linezolid 600 q.12 hours on 03/02 continue IV diuretics, keep leg elevated -follow CBC and clinical course #Bilateral venous stasis dermatitis -wound care pending # hypertension -noncompliant with antihypertensives, Was previously on lisinopril-hydrochlorothiazide, blood pressure is stable, continue to monitor blood pressure. #Prediabetes -hgb a1c 6.2 recommend low-calorie diet and weight loss, being followed by cogeneration operator #Depression -stable, continue home meds #Morbid obesity -weight loss efforts discussed and encouraged dvt prophylaxis- lovenox full code pt requires continued inpt stay for management of extensive cellulitis involving 50% of extremity with sepsis in morbidly obese patient who will require iv abx and close monitoring of hemodynamics to prevent decompensation Quality Stroke Does the patient have a stroke diagnosis?: No VTE Prior VTE?: Yes VTE Risk Level:: Medical - moderate - high VTE Device Contraindication: Treatment Not Indicated VTE Drug Contraindication: N/A - Med Ordered
[2024-03-03] MEDS: Enoxaparin Sodium 40 MG/0.4 ML SYRINGE SUBCUT (16:38)
[2024-03-04] MEDS: 0.9 % Sodium Chloride Flush 3 ML SYRINGE IVFLUSH ×3 (01:26→17:41)
[2024-03-04] MEDS: Linezolid/D5W 600 MG/300 ML PIGGYBACK 300 MG IV ×2 (01:30→13:28)
[2024-03-04 02:57] VITALS: BP 129/65; PULSE 94; RESP 20; TEMP 36.3; O2SAT 96
[2024-03-04 07:03] LABS: Hemoglobin 10.8 g/dl (14.0-18.0); Mean Corpuscular HGB Conc 32.7 g/dl (31.0-36.0); Mean Corpuscular Hemoglobin 23.1 pg (27.0-33.0); Mean Corpuscular Volume 70.7 fL (80.0-98.0); Platelet Count 298 X10*3/uL (160-400); Red Blood Count 4.67 X10*6/uL (4.60-5.80); Red Cell Distribution Width 17.2 % (11.0-16.0); White Blood Count 9.7 X10*3/uL (4.8-10.8)
[2024-03-04 07:16] LABS: Anion Gap 13 (12-20); Blood Urea Nitrogen 12 mg/dL (9-16); Calcium 8.8 mg/dL (8.4-10.2); Carbon Dioxide 23 mmol/L (22-29); Chloride 106 mmol/L (96-108); Creatinine Clr Calc Pharmacy 231.9; Estimated Glomerular Filt Rate > 60; Glucose Random 94 mg/dL (60-115); Potassium 3.3 mmol/L (3.3-5.1); Sodium 139 mmol/L (135-145)
[2024-03-04 07:34] VITALS: BP 144/66; PULSE 82; RESP 18; TEMP 36.5; O2SAT 97
[2024-03-04 09:41] VITALS: BP 144/66
[2024-03-04] MEDS: Furosemide 20 MG/2 ML VIAL 40 MG IVPUSH (09:41)
--- NOTE | 2024-03-04 11:11 | MHC.CM.PN ---
EMR reviewed. Patient not medically cleared for dc at this time. CM will continue to follow.
--- NOTE | 2024-03-04 13:32 | HO.PM.IMPN ---
Subjective Subjective Date of Service: 03/04/24 Interval History: Like continues to be red and warm to touch. Patient does note mild improvement Review of Systems Denies chest pain Denies shortness of breath Denies nausea vomiting diarrhea Denies fever chills Physical Exam Vital Signs: Vital Signs: Last Vital Signs Temp 97.7 F 03/04/24 07:34 Pulse 82 03/04/24 07:34 Resp 18 03/04/24 07:34 BP 144/66 H 03/04/24 09:41 Pulse Ox 97 03/04/24 07:34 O2 Del Method Room Air 03/04/24 07:34 O2 Flow Rate 92 03/03/24 16:00 BMI result Body Mass Index 60.1 Const: Other: Awake alert no acute distress Resp: Other: Clear to auscultation bilaterally no rales rhonchi or wheezes Cardio: Other: No S4; positive S1-S2; no S3 murmurs rubs or gallops GI: Other: Soft nontender nondistended normoactive bowel sounds Extrem: Other: Right lower extremity edematous with erythema and warmth; improved secondary to border tracing Objective Data Active Medications Acetaminophen (Acetaminophen 325 Mg Tablet) 650 mg PO Q6H PRN PRN Reason: Pain, Mild (Pain Scale 1-3) Last Admin: 03/02/24 16:15 Dose: 650 mg Documented By: CHAD Calcium Carbonate (Calcium Carbonate 750 Mg Tab.Chew) 750 mg PO Q4H PRN PRN Reason: Heartburn Enoxaparin Sodium (Enoxaparin Sodium 40 Mg/0.4 Ml Syringe) 40 mg SUBCUT Q24H [facility] Last Admin: 03/03/24 16:38 Dose: 40 mg Documented By: RADHA Furosemide (Furosemide 20 Mg/2 Ml Vial) 40 mg IVPUSH DAILY [facility]; Protocol Last Admin: 03/04/24 09:41 Dose: 40 mg Documented By: ARTHUR Linezolid (Zyvox/D5w) 600 mg in 300 mls @ 300 mls/hr IV Q12H [facility] Last Admin: 03/04/24 13:28 Dose: 300 mls/hr Documented By: MONICO Ibuprofen (Ibuprofen 800 Mg Tablet) 800 mg PO Q8H PRN PRN Reason: Fever Last Admin: 02/29/24 18:40 Dose: 800 mg Documented By: DARRELL Magnesium Hydroxide (Milk Of Magnesia 30 Ml Oral.Susp) 30 ml PO DAILY PRN PRN Reason: Constipation Melatonin (Melatonin 3 Mg Tablet) 6 mg PO BEDTIME PRN PRN Reason: Insomnia Sodium Chloride (0.9 % Sodium Chloride Flush 3 Ml Syringe) 3 ml IVFLUSH QSHIFT [facility] Last Admin: 03/04/24 09:42 Dose: 3 ml Documented By: ARTHUR Labs 03/04/24 05:49 03/04/24 05:49 Labs: Laboratory Results - last 24 hr 03/04/24 05:49 MCV 70.7 L MCH 23.1 L MCHC 32.7 RDW 17.2 H Plt Count 298 MPV 9.0 L Absolute Nucleated RBC 0.000 Nucleated RBC % (auto) 0.0 Anion Gap 13 Estim Creat Clear Calc 231.9 Estimated GFR > 60 Random Glucose 94 Calcium 8.8 D Assessment and Plan (1) Sepsis: Status: Acute (2) Cellulitis: Status: Acute Plan 38-year-old male with history of hypertension noncompliant with antihypertensive agents, remote hx PE no longer on ac, prediabetes, depression, who is morbidly obese with BMI greater than 60 admitted for further management of RLE cellulitis with sepsis. 1.Extensive acute RLE cellulitis -sepsis resolved -WBC trending down, no recurrent high-grade fevers, redness and swelling gradually improving -MRSA nasal swab negative, blood cultures x2 negative times 48 hours - linezolid 600 q.12 hours on 03/02 continue IV diuretics, keep leg elevated -follow CBC and clinical course 2.Bilateral venous stasis dermatitis -wound care pending 3.Hypertension -noncompliant with antihypertensives, Was previously on lisinopril-hydrochlorothiazide, blood pressure is stable, continue to monitor blood pressure. Lovenox Full code pt requires continued inpt stay for management of extensive cellulitis involving 50% of extremity with sepsis in morbidly obese patient who will require iv abx and close monitoring of hemodynamics to prevent decompensation Quality Stroke Does the patient have a stroke diagnosis?: No VTE Prior VTE?: Yes VTE Risk Level:: Medical - moderate - high VTE Device Contraindication: Treatment Not Indicated VTE Drug Contraindication: N/A - Med Ordered
[2024-03-04 15:57] VITALS: BP 136/72; PULSE 94; RESP 20; TEMP 36.3; O2SAT 95
--- NOTE | 2024-03-04 16:06 | HO.WOUND ---
Wound Consult: Initial 38yr old?Male admitted to [facility] on 02/29/24 - See progress notes and H&P for detailed history.? Wound consult placed for RLE.? Patient agreeable to assessment and photo documentation.? Patient bilateral lower legs significantly elevate in recliner chair along with pillows. Significant swelling noted - however patient reports significant improvement - reports improved erythema and swelling. The patient reports he has chronic swelling and lower leg edema previously resulting in wounds. He reports she treats with [employer] size G and ointments when open wounds arise. Currently right leg has intact stable dry scab in place - no drainage is noted - able to palpate and no fluctuance noted. Patient requests no dressing at this time as the areas he feels is healing and does not want to disrupt the healing process. Topical recommendations made below should the scab soften and wound bed open. Right Lateral Lower Leg Etiology: ?Venous wound Measurements: 2cm x 2cm x 0.1cm Wound Bed: Dry stable adherent scab noted Drainage / Odor: None noted Edges: ? irregular and attached [place] wound: ? Red erythema - improving her pt statement - swelling noted - No Induration, Fluctuance noted Pain: mild pain reported Goals of Treatment: ? Elevate lower legs and moisturize lower legs to keep tissue healthy Recommendations: Bilateral Lower Legs - Elevate lower Legs with pillows. Cleanse with Ph Balanced Thom [place], pat dry. if scab opens or drainage is noted apply xeroform to open wound bed cover with dry gauze, abd pad and gauze wrap, Change Daily.
[2024-03-04] MEDS: Enoxaparin Sodium 40 MG/0.4 ML SYRINGE SUBCUT (17:40)
[2024-03-04] MEDS: Acetaminophen 325 MG TABLET 650 MG PO (17:40)
[2024-03-04 20:00] VITALS: BP 135/71; PULSE 85; RESP 18; TEMP 36.1; O2SAT 96
[2024-03-05] MEDS: Linezolid/D5W 600 MG/300 ML PIGGYBACK 300 MG IV ×2 (01:16→13:17)
[2024-03-05] MEDS: 0.9 % Sodium Chloride Flush 3 ML SYRINGE IVFLUSH ×3 (01:16→17:07)
[2024-03-05 03:25] VITALS: BP 134/67; PULSE 78; RESP 18; TEMP 36.8; O2SAT 95
[2024-03-05 07:38] VITALS: BP 139/61; PULSE 84; RESP 17; TEMP 36.8; O2SAT 95
[2024-03-05 08:15] VITALS: BP 139/61
[2024-03-05] MEDS: Furosemide 20 MG/2 ML VIAL 40 MG IVPUSH (08:15)
--- NOTE | 2024-03-05 14:35 | P.PNIM_ITS ---
Subjective Subjective Date of Service: 03/05/24 Interval History: Slowly improving. Remains afebrile Review of Systems Denies chest pain Denies shortness of breath Denies nausea vomiting diarrhea Denies fever chills Physical Exam 2 Vital Signs: Vital Signs: Last Vital Signs Temp 98.3 F 03/05/24 07:38 Pulse 84 03/05/24 07:38 Resp 17 03/05/24 07:38 BP 139/61 03/05/24 08:15 Pulse Ox 95 03/05/24 07:38 O2 Del Method Room Air 03/05/24 07:38 O2 Flow Rate 92 03/03/24 16:00 BMI result Body Mass Index 60.1 Const: Other: Awake alert no acute distress Resp: Other: Clear to auscultation bilaterally no rales rhonchi or wheezes Cardio: Other: No S4; positive S1-S2; no S3 murmurs rubs or gallops GI: Other: Soft nontender nondistended normoactive bowel sounds Extrem: Other: Right lower extremity edematous with erythema and warmth; improved secondary to border tracing Objective Data Active Medications Acetaminophen (Acetaminophen 325 Mg Tablet) 650 mg PO Q6H PRN PRN Reason: Pain, Mild (Pain Scale 1-3) Last Admin: 03/04/24 17:40 Dose: 650 mg Documented By: MONICO Calcium Carbonate (Calcium Carbonate 750 Mg Tab.Chew) 750 mg PO Q4H PRN PRN Reason: Heartburn Enoxaparin Sodium (Enoxaparin Sodium 40 Mg/0.4 Ml Syringe) 40 mg SUBCUT Q24H [facility] Last Admin: 03/04/24 17:40 Dose: 40 mg Documented By: MONICO Furosemide (Furosemide 20 Mg/2 Ml Vial) 40 mg IVPUSH DAILY [facility]; Protocol Last Admin: 03/05/24 08:15 Dose: 40 mg Documented By: TADEO Linezolid (Zyvox/D5w) 600 mg in 300 mls @ 300 mls/hr IV Q12H [facility] Last Infusion: 03/05/24 14:27 Dose: Infused Documented By: TADEO Ibuprofen (Ibuprofen 800 Mg Tablet) 800 mg PO Q8H PRN PRN Reason: Fever Last Admin: 02/29/24 18:40 Dose: 800 mg Documented By: DARRELL Magnesium Hydroxide (Milk Of Magnesia 30 Ml Oral.Susp) 30 ml PO DAILY PRN PRN Reason: Constipation Melatonin (Melatonin 3 Mg Tablet) 6 mg PO BEDTIME PRN PRN Reason: Insomnia Sodium Chloride (0.9 % Sodium Chloride Flush 3 Ml Syringe) 3 ml IVFLUSH QSHIFT [facility] Last Admin: 03/05/24 08:15 Dose: 3 ml Documented By: TADEO Labs 03/04/24 05:49 03/04/24 05:49 Assessment and Plan (1) Cellulitis: Status: Acute Plan 38-year-old male with history of hypertension noncompliant with antihypertensive agents, remote hx PE no longer on ac, prediabetes, depression, who is morbidly obese with BMI greater than 60 admitted for further management of RLE cellulitis with sepsis. 1.Extensive acute RLE cellulitis -MRSA nasal swab negative, blood cultures x2 negative times 48 hours - linezolid 600 q.12h(3).. Vancomycin x2 days (switched by ID) -switch to p.o. linezolid upon discharge 2.Bilateral venous stasis dermatitis -wound care pending 3.Hypertension -noncompliant with antihypertensives, Was previously on lisinopril- hydrochlorothiazide, blood pressure is stable, continue to monitor blood pressure. Lovenox Full code pt requires continued inpt stay for management of extensive cellulitis involving 50% of extremity with sepsis in morbidly obese patient who will require iv abx and close monitoring of hemodynamics to prevent decompensation Quality Stroke Does the patient have a stroke diagnosis?: No VTE Prior VTE?: Yes VTE Risk Level:: Medical - moderate - high VTE Device Contraindication: Treatment Not Indicated VTE Drug Contraindication: N/A - Med Ordered
[2024-03-05 15:23] VITALS: BP 171/75; PULSE 91; RESP 14; TEMP 37.1; O2SAT 95
[2024-03-05] MEDS: Acetaminophen 325 MG TABLET 650 MG PO (17:04)
[2024-03-05] MEDS: Enoxaparin Sodium 40 MG/0.4 ML SYRINGE SUBCUT (17:07)
[2024-03-05 19:52] VITALS: BP 140/71; PULSE 81; RESP 20; TEMP 36.7; O2SAT 96
[2024-03-06] MEDS: Linezolid/D5W 600 MG/300 ML PIGGYBACK 300 MG IV ×2 (01:09→13:21)
[2024-03-06] MEDS: 0.9 % Sodium Chloride Flush 3 ML SYRINGE IVFLUSH ×3 (01:09→16:26)
[2024-03-06 04:00] VITALS: BP 145/72; PULSE 84; RESP 16; TEMP 36.4; O2SAT 98
[2024-03-06 08:00] VITALS: BP 146/74; PULSE 88; RESP 16; TEMP 36.6; O2SAT 95
[2024-03-06 08:10] VITALS: BP 145/72
[2024-03-06] MEDS: Furosemide 20 MG/2 ML VIAL 40 MG IVPUSH (08:10)
--- NOTE | 2024-03-06 11:48 | P.PNIM_ITS ---
Subjective Subjective Date of Service: 03/06/24 Interval History: Notes improvement today overall in pain. Ambulating to BR without issue Review of Systems Denies chest pain Denies shortness of breath Denies nausea vomiting diarrhea Denies fever chills Physical Exam 2 Vital Signs: Vital Signs: Last Vital Signs Temp 97.9 F 03/06/24 08:00 Pulse 88 03/06/24 08:00 Resp 16 03/06/24 08:00 BP 145/72 H 03/06/24 08:10 Pulse Ox 95 03/06/24 08:00 O2 Del Method Room Air 03/06/24 08:00 O2 Flow Rate 92 03/03/24 16:00 BMI result Body Mass Index 60.1 Const: Other: Awake alert no acute distress Resp: Other: Clear to auscultation bilaterally no rales rhonchi or wheezes Cardio: Other: No S4; positive S1-S2; no S3 murmurs rubs or gallops GI: Other: Soft nontender nondistended normoactive bowel sounds Extrem: Other: Right lower extremity edematous with erythema and warmth; improved secondary to border tracing Objective Data Active Medications Acetaminophen (Acetaminophen 325 Mg Tablet) 650 mg PO Q6H PRN PRN Reason: Pain, Mild (Pain Scale 1-3) Last Admin: 03/05/24 17:04 Dose: 650 mg Documented By: TADEO Calcium Carbonate (Calcium Carbonate 750 Mg Tab.Chew) 750 mg PO Q4H PRN PRN Reason: Heartburn Enoxaparin Sodium (Enoxaparin Sodium 40 Mg/0.4 Ml Syringe) 40 mg SUBCUT Q24H [facility] Last Admin: 03/05/24 17:07 Dose: 40 mg Documented By: TADEO Furosemide (Furosemide 20 Mg/2 Ml Vial) 40 mg IVPUSH DAILY [facility]; Protocol Last Admin: 03/06/24 08:10 Dose: 40 mg Documented By: TADEO Linezolid (Zyvox/D5w) 600 mg in 300 mls @ 300 mls/hr IV Q12H [facility] Last Infusion: 03/06/24 02:35 Dose: Infused Documented By: GUALBERTO Ibuprofen (Ibuprofen 800 Mg Tablet) 800 mg PO Q8H PRN PRN Reason: Fever Last Admin: 02/29/24 18:40 Dose: 800 mg Documented By: DARRELL Magnesium Hydroxide (Milk Of Magnesia 30 Ml Oral.Susp) 30 ml PO DAILY PRN PRN Reason: Constipation Melatonin (Melatonin 3 Mg Tablet) 6 mg PO BEDTIME PRN PRN Reason: Insomnia Sodium Chloride (0.9 % Sodium Chloride Flush 3 Ml Syringe) 3 ml IVFLUSH QSHIFT [facility] Last Admin: 03/06/24 08:11 Dose: 3 ml Documented By: TADEO Labs 03/04/24 05:49 03/04/24 05:49 Microbiology Microbiology Results: Microbiology 02/29/24 14:33 Blood Culture - Final Blood - Venous No growth after 5 days. 02/29/24 14:16 Blood Culture - Final Blood - Venous No growth after 5 days. Assessment and Plan (1) Cellulitis: Status: Acute (2) Hypertension: Status: Acute Plan 38-year-old male with history of hypertension noncompliant with antihypertensive agents, remote hx PE no longer on ac, prediabetes, depression, who is morbidly obese with BMI greater than 60 admitted for further management of RLE cellulitis with sepsis. 1.Extensive acute RLE cellulitis -MRSA nasal swab negative, blood cultures x2 negative times 48 hours - linezolid 600 q.12hIV (4).. Vancomycin x2 days (switched by ID) -switch to p.o. linezolid upon discharge 2.Bilateral venous stasis dermatitis -wound care pending 3.Hypertension -restart lisinopril @10mg QD -follow up clinically Lovenox Full code pt requires continued inpt stay for management of extensive cellulitis involving 50% of extremity with sepsis in morbidly obese patient who will require iv abx and close monitoring of hemodynamics to prevent decompensation Quality Stroke Does the patient have a stroke diagnosis?: No VTE Prior VTE?: Yes VTE Risk Level:: Medical - moderate - high VTE Device Contraindication: Treatment Not Indicated VTE Drug Contraindication: N/A - Med Ordered
[2024-03-06 12:23] VITALS: BP 144/79
[2024-03-06] MEDS: lisinopriL 10 MG TABLET PO (12:23)
[2024-03-06 15:56] VITALS: BP 147/72; PULSE 92; RESP 18; TEMP 36.9; O2SAT 97
[2024-03-06] MEDS: Enoxaparin Sodium 40 MG/0.4 ML SYRINGE SUBCUT (16:25)
[2024-03-06 19:26] VITALS: BP 138/66; PULSE 96; RESP 18; TEMP 36.9; O2SAT 97
[2024-03-07] MEDS: 0.9 % Sodium Chloride Flush 3 ML SYRINGE IVFLUSH ×2 (00:51→08:05)
[2024-03-07] MEDS: Linezolid/D5W 600 MG/300 ML PIGGYBACK 300 MG IV (00:51)
[2024-03-07 03:43] VITALS: BP 139/77; PULSE 84; RESP 20; TEMP 36.8; O2SAT 95
[2024-03-07 06:15] LABS: MANUAL DIFF FLAG NO
[2024-03-07 06:30] LABS: Basophils Absolute Auto 0.1 X10*3/uL (0.0-0.2); Basophils Percent Auto 0.6 % (0-2); Eosinophils Absolute Auto 0.2 X10*3/uL (0.0-0.4); Eosinophils Percent Auto 2.4 % (0-4); Hematocrit 33.1 % (42.0-52.0); Hemoglobin 10.6 g/dl (14.0-18.0); Imm Gran Pct Auto 1.2 % (0.0-0.4); Lymphocytes Absolute Auto 1.9 X10*3/uL (1.2-4.9); Lymphocytes Percent Auto 22.4 % (20-40); Mean Corpuscular Hemoglobin 22.7 pg (27.0-33.0); Mean Platelet Volume 8.8 fL (9.4-12.4); Monocytes Percent Auto 11.6 % (2-11); Neutrophils Absolute Auto 5.1 x10*3/uL (2.0-8.3); Neutrophils Percent Auto 61.8 % (45-73); Platelet Count 426 X10*3/uL (160-400); Red Blood Count 4.66 X10*6/uL (4.60-5.80); Red Cell Distribution Width 17.1 % (11.0-16.0); White Blood Count 8.3 X10*3/uL (4.8-10.8)
[2024-03-07 06:37] LABS: Alanine Aminotransferase 29 U/L (0-40); Albumin Level 3.5 g/dL (3.5-5.0); Alkaline Phosphatase 53 U/L (39-117); Anion Gap 16 (12-20); Aspartate Amino Transferase 24 U/L (5-37); Bilirubin Total 0.4 mg/dL (0.0-1.0); Blood Urea Nitrogen 11 mg/dL (9-16); Calcium 8.7 mg/dL (8.4-10.2); Carbon Dioxide 25 mmol/L (22-29); Chloride 104 mmol/L (96-108); Creatinine Clr Calc Pharmacy 221.1; Estimated Glomerular Filt Rate > 60; Glucose Fasting 94 mg/dL (60-99); Potassium 3.7 mmol/L (3.3-5.1); Sodium 141 mmol/L (135-145); Total Protein 7.9 g/dL (6.5-8.0)
[2024-03-07 07:55] VITALS: BP 139/73; PULSE 86; RESP 18; TEMP 36.6; O2SAT 94
[2024-03-07 08:05] VITALS: BP 139/73
[2024-03-07] MEDS: lisinopriL 10 MG TABLET PO (08:05)
[2024-03-07] MEDS: Furosemide 20 MG/2 ML VIAL 40 MG IVPUSH (08:05)
--- NOTE | 2024-03-07 09:11 | MHC.CLN ---
F/U INTAKE APPEARS TO BE 100% MOST MEALS. DIET=REGULAR WITH ENSURE MAX PROTEIN BID. CONTINUE TO PROVIDE FOOD PREFERENCES ABLE AND PROVIDE SUPPLEMENT.
--- NOTE | 2024-03-07 11:17 | MHC.CM.PN ---
EMR reviewed. Per MD rounds patient is medically cleared for dc home w/ [facility] for SN (wound care). Patient prefers [facility] who has accepted and will see patient 03/09. Patient will be transported home via [facility] shuttle at 1:30pm. RN, and patient aware.
--- NOTE | 2024-03-07 11:29 | P.DS_ITS ---
DS: Providers Provider Date of Service: 03/07/24 Date of admission: 02/29/24 15:57 Date of discharge: 03/07/24 Primary care physician: Lalo Wiseman MD Consults: 02/29/24 16:04 Consult to Wound Care Routine Reason for consultation: RLE ulcer 03/01/24 14:23 Consult to Infectious Diseases Routine Consulting Provider: Verena Coto Reason for consultation: rt legcellulitis Has provider been notified: No DS: Diagnosis Discharge Diagnosis (1) Cellulitis: Status: Acute (2) Hypertension: Status: Acute DS: Summary Hospital Course Hospital Course: 38-year-old male with history of hypertension noncompliant with antihypertensive agents, prediabetes, depression, who is morbidly obese with BMI greater than 60 presented to the ED earlier today for evaluation of an infection in the right lower extremity. He states last night while at work, he began experiencing rigors and some confusion with pain in the right lower extremity. He states he has had a nonhealing ulcer in the right lower leg for about 2 months but denies any purulent drainage. No fevers, chills. No hx diabetes known. No known history of MRSA. No hx IVDA. Since arrival, pt has been febrile to 103, tachycardic to 121, no hypotension. He has a leukocytosis of 23 with 12% bandemia. Renal function is normal, electrolyte levels normal. Procalcitonin 1.65. Venous duplex negative for DVT in the bilateral lower extremities. Chest x-ray unremarkable. In the ED, has been given Tylenol, IV Zosyn, IV vancomycin, and IV fluids. He will be admitted for further management of cellulitis in the right lower extremity with sepsis. Hospital Course Admitted to general medical floor and started on IV linezolid. Seen by ID who recommended continue IV linezolid until improved then switching to 2 weeks of p.o.. Over the course of the next 5 days he continued to improve and on the day of discharge he is markedly improved able to bear weight without significant pain. At this point he is medically acceptable to be discharged home with a 14 day course of linezolid. He will follow up with Dr. Ch who will orchestrate compression stockings and wound care follow-up Time Attestation Discharge Coordination Time (in mins): 35 Quality: Safe Use of Opioids Does Pt have an Active Cancer Diagnosis on the Problem List?: No Quality: Stroke Does the patient have a stroke diagnosis?: No Physical Exam Vital Signs: Vital Signs: Last Vital Signs Temp 97.8 F 03/07/24 07:55 Pulse 86 03/07/24 07:55 Resp 18 03/07/24 07:55 BP 139/73 03/07/24 08:05 Pulse Ox 94 03/07/24 07:55 O2 Del Method Room Air 03/07/24 07:55 O2 Flow Rate 92 03/03/24 16:00 BMI result Body Mass Index 60.1 Const: Other: Awake alert no acute distress Resp: Other: Clear to auscultation bilaterally no rales rhonchi or wheezes Cardio: Other: No S4; positive S1-S2; no S3 murmurs rubs or gallops GI: Other: Soft nontender nondistended normoactive bowel sounds Extrem: Other: Right lower extremity edematous with erythema and warmth; improved secondary to border tracing DS: Data Data Completed and Pending Labs on day of discharge: Laboratory Results - last 24 hr 03/07/24 05:40 WBC 8.3 RBC 4.66 Hgb 10.6 L Hct 33.1 L MCV 71.0 L MCH 22.7 L MCHC 32.0 RDW 17.1 H Plt Count 426 H D MPV 8.8 L Immature Gran % (Auto) 1.2 H Neut % (Auto) 61.8 Lymph % (Auto) 22.4 [place] % (Auto) 11.6 H Eos % (Auto) 2.4 Baso % (Auto) 0.6 Lymph # (Auto) 1.9 [place] # (Auto) 1.0 Eos # (Auto) 0.2 Baso # (Auto) 0.1 Abs Immat Gran (auto) 0.10 H Absolute Neuts (auto) 5.1 Absolute Nucleated RBC 0.000 Nucleated RBC % (auto) 0.0 Sodium 141 Potassium 3.7 Chloride 104 Carbon Dioxide 25 Anion Gap 16 BUN 11 Creatinine 0.86 Estim Creat Clear Calc 221.1 Estimated GFR > 60 Fasting Glucose 94 Calcium 8.7 Total Bilirubin 0.4 AST 24 ALT 29 Alkaline Phosphatase 53 Total Protein 7.9 Albumin 3.5 Discharge Plan Discharge Anticipated Discharge Date/Time: 03/07/24 11:23 Patient Disposition: Home Health Service Discharge Diagnosis: RLE cellulitis Referrals: [facility]INT[facility] [Outside] - 3-5 Days (Jose HINTON will call you to schedule nursing visits) Lalo Wiseman MD [Primary Care Provider] - 1 Week Discharge Medications: New lisinopril 10 mg Tablet 10 mg PO DAILY Qty: 30 2RF Protocol: Hold for SBP< HOLD for SBP < : 90 linezolid 600 mg tablet 600 mg PO Q12H 14 Days Qty: 28 0RF Discharge Orders: Discharge Order (Routine); Ordered 03/07/24 Ordered By: Bob Perry Diet: Advance to usual diet Activity on Discharge: As tolerated Stand Alone Forms: Patient Portal Discharge page, Work/School Release Print Language: [place] Island[place] Activity Restrictions/Additional Instructions: Topical Recommendations: Bilateral Lower Legs - Elevate lower Legs with pillows. Cleanse with Ph Balanced Thom [place], pat dry. if scab opens or drainage is noted apply xeroform to open wound bed cover with dry gauze, abd pad and gauze wrap, Change Daily. Recommend Dr. Ch Vascular Surgeon for outpatient follow up for compression therapy.? His office is located at [address] [place] [address] [address], [place] [address], call for an appointment at time of discharge [phone] Care Plan Goals: Follow-up with Dr. Ch; he will assess you for compression therapy and make recommendations about wound clinic. His office number as above Health Concerns: Linezolid 600 mg twice daily for 14 days; lisinopril has been added for blood pressure Plan of Treatment: Make arrangements for follow up with your PCP at the next available appointment Assessment: See discharge summary
--- NOTE | 2024-03-07 12:18 | P.F2F_ITS ---
Service Date Service Date: 03/07/24 Encounter Date of encounter: 03/07/24 Encounter: Acute hospitalization Reasons for Services Signs and symptoms assessed: Need to follow chronic lymphedema and cellulitic response to therapies Reason for halfway: medication management, medication treatment and teach disease management Homebound: Leaving the home is medically contraindicated at this time without the asist of a device and/or another person due th the listed conditions above and below. Reason homebound: unsteady gait / fall risk and pain with ambulation Certification: Based on the above findings, I certify that this patient is confined to the home and needs intermittent halfway care, physical therapy and/or speech therapy, or continues to need occupational therapy. The patient is under my car e, and I have initiated the establishment of the plan of care. The patient will be followed by a physician who will periodically review the plan of care. Time Spent With Patient Time: Total time managing care of this patient today ____ minutes.
== END 2024-03-07 13:46 | disposition home health service (06) | DRG 720 ==
LOC: HO.ED 14:54 → HO.EDOVER 16:07 → HO.S3 19:53
PROVIDERS: Hospitalist; Admitting Provider Physician Assistant; Emergency Provider Emergency Medicine; PCP Internal Medicine; Visit Provider Hospitalist
DX: A41.9 Sepsis, unspecified organism (principal); Z68.44 Body mass index [BMI] 60.0-69.9, adult; L03.115 Cellulitis of right lower limb; I87.2 Venous insufficiency (chronic) (peripheral); F32.A Depression, unspecified; R73.03 Prediabetes; Z71.3 Dietary counseling and surveillance; E66.01 Morbid (severe) obesity due to excess calories; Z20.822 Contact with and (suspected) exposure to COVID-19; Z86.711 Personal history of pulmonary embolism; Z91.148 Patient's other noncompliance with medication regimen for other reason
CPT/HCPCS: 0241U; 36415; 71045; 80048; 80053; 80076; 80202; 81001; 82565; 83036; 83540; 83605; 83735; 83880; 84145; 84484; 85007; 85025; 85027; 85652; 86140; 87040; 87640; 87641; 93970; 99285; J0690; J1650; J1940; J2020; J2405; J2543; J3370; J3371

== ENCOUNTER → 2024-02-29 15:57 | Outpatient (BNV) | payer OTHER, SELFPAY | PROVIDERS: Admitting Provider Physician Assistant; Emergency Provider Emergency Medicine; PCP Internal Medicine; Visit Provider Internal Medicine | DX: A41.9 Sepsis, unspecified organism (principal); D72.825 Bandemia; L03.115 Cellulitis of right lower limb | CPT/HCPCS: 99222 ==

== ENCOUNTER → 2024-02-29 15:57 | Outpatient (BNV) | payer OTHER, SELFPAY | PROVIDERS: Admitting Provider Physician Assistant; Emergency Provider Emergency Medicine; PCP Internal Medicine; Visit Provider Physician Assistant | DX: L03.115 Cellulitis of right lower limb (principal); I10 Essential (primary) hypertension | CPT/HCPCS: 99222; 99232; 99239; G0180 ==

== ENCOUNTER 2024-03-15 13:20 | Outpatient (REF) | payer OTHER, SELFPAY ==
[2024-03-15 16:17] LABS: MANUAL DIFF FLAG NO
[2024-03-15 16:26] LABS: Basophils Absolute Auto 0.1 X10*3/uL (0.0-0.2); Basophils Percent Auto 0.5 % (0-2); Eosinophils Absolute Auto 0.1 X10*3/uL (0.0-0.4); Eosinophils Percent Auto 0.6 % (0-4); Hematocrit 33.9 % (42.0-52.0); Hemoglobin 10.6 g/dl (14.0-18.0); Imm Gran Abs Auto 0.07 X10*3/uL (0.00-0.03); Imm Gran Pct Auto 0.6 % (0.0-0.4); Lymphocytes Absolute Auto 1.7 X10*3/uL (1.2-4.9); Lymphocytes Percent Auto 13.3 % (20-40); Mean Corpuscular HGB Conc 31.3 g/dl (31.0-36.0); Mean Corpuscular Hemoglobin 22.5 pg (27.0-33.0); Mean Platelet Volume 8.9 fL (9.4-12.4); Monocytes Absolute Auto 1.1 X10*3/uL (0.1-1.2); Monocytes Percent Auto 8.8 % (2-11); Neutrophils Absolute Auto 9.5 x10*3/uL (2.0-8.3); Neutrophils Percent Auto 76.2 % (45-73); Platelet Count 467 X10*3/uL (160-400); Red Blood Count 4.71 X10*6/uL (4.60-5.80); Red Cell Distribution Width 17.2 % (11.0-16.0); White Blood Count 12.4 X10*3/uL (4.8-10.8)
[2024-03-15 16:33] LABS: Estimated Average Glucose 128 mg/dL; Hemoglobin A1c % 6.1 % (<6.0)
== END 2024-03-15 13:21 | disposition home or self-care (01) ==
LOC: HO.HVNA 13:20
PROVIDERS: PCP Internal Medicine; Visit Provider Internal Medicine
DX: E11.9 Type 2 diabetes mellitus without complications (principal); I10 Essential (primary) hypertension; L03.115 Cellulitis of right lower limb
CPT/HCPCS: 36415; 83036; 85025

== ENCOUNTER 2024-04-14 14:06 | Outpatient (AMB) | payer OTHER, SELFPAY ==
--- NOTE | 2024-04-14 14:10 | A.OFFVIS_ITS ---
Intake Visit Reasons: [employer]/ ED Referral for cellulitis Intake Note: [employer]/ED referral for bilateral LE swelling, discoloration and blistering. Hx of cellulitis, Right LE worse than the Left LE. Allergies dog dander Allergy (Mild, Verified 02/29/24 13:53) itching sneezing HPI HPI [employer]/ ED Referral for cellulitis: Details: Super morbidly obese 39-year-old male presents for painful varicose veins. Complaints include significant edema of the lower extremities which have led to ulcerations and cellulitis. He had been hospitalized and treated with IV antibiotics. Currently on Lasix which appears to be helping somewhat. It has been affecting there daily activities including walking. It is noted more so in right leg. Patient denies any previous venous surgery or injections. Patient denies any history of DVT/ PE. Patient denies any history of phlebitis. Trial of compression includes - [id number] compression which he is unable to wear anymore They now present for vascular evaluation regarding their varicose veins. [facility] Medical History Cellulitis Prediabetes Hypertension Leg edema Obesity Pulmonary embolism Social History Household Members Other:: mother Housing: House Do you presently have visiting nurse or other home services: No Alcohol intake: current Patient Tobacco Use Status: Never used Tobacco service: No Review of Systems Const Reports as per HPI ENT Reports no additional complaints Card Denies chest pain, Denies chest pain at rest and Denies chest pain with activity Resp Denies chest congestion and Denies cough GI Reports no additional complaints Musc Details: pain over varicosities, aching of lower extremities, swelling, cramping, heaviness and tiredness, itching Denies abnormal gait Skin/Breast Reports pruritus and Denies wounds Neuro Reports no additional complaints and Denies abnormal gait Psych Denies no additional complaints Physical Exam Const General: cooperative, healthy appearing and comfortable Orientation/consciousness: oriented to person, oriented to place and oriented to time Neck Carotids: no bruits Chest Chest palpation & inspection: normal inspection of the chest and normal palpation of entire chest wall Resp Effort & Inspection: normal respiratory effort and able to speak in complete sentences Cardio Rate: regular rate Heart sounds: S1 normal heart sound present and S2 normal heart sound present Peripheral pulses: Peripheral pulses 2+ throughout GI Inspection: Yes normal to inspection Skin Other: +2 edema, evidence of healed ulceration right and left pretibial surfaces CEAP Classification C5 - healed ulcer Ep - Etiology Primary As - superficial veins P - reflux General skin exam: dry skin Neuro General: oriented to person, oriented to place and oriented to time Extrem Right lower extremity: full ROM, normal capillary refill and edema Left lower extremity: full ROM, normal capillary refill and edema Psych Mental Status: mental status grossly normal Assessment & Plan Assessment & Plan (1) Varicose veins of right lower extremity with inflammation: Code(s): I83.11 - Varicose veins of right lower extremity with inflammation Category: Medical Plan: In short, the patient has evidence of venous insufficiency. I have discussed the pathophysiology with the patient. In addition I have provided informational material regarding venous disease to the patient. We have disc ussed conservative measures including compression, elevation, and exercise. I have also provided a handout regarding appropriate use of compression stockings and where to purchase good compression stockings as well. I have taken the liberty of ordering venous insufficiency testing with the patient. They will follow up with me after testing. The patient had an opportunity to ask questions regarding the treatment plan. All questions were answered. Imaging studies, laboratory studies and physical exam results were discussed and reviewed in detail. No major barriers to understanding were identified. The patient expressed understanding and agreement with the above treatment plan. The patient is aware they should contact our office by phone for worsening of the current condition or the appearance of new symptoms. Thank you for allowing me to participate in the vascular care of this patient. If you have any questions or concerns regarding the treatment for the above condition please do not hesitate to contact me. The office telephone contact is [phone]. This note is constructed using voice recognition software. While every effort has been made to ensure accuracy, change management manager errors may have been included. Thank you for allowing me to participate in the care of your patient. Yours sincerely, Johnny Ch MD, FACS, R.P.V.I. Orders: Orders US venous duplex LE BI 1 Week I83.11 - Varicose veins of right lower extremity with inflammation Coding Level of Care Code New Pt Level 4 (30045) Diagnoses Varicose veins of right lower extremity with inflammation I83.11
== END 2024-04-14 14:37 | disposition home or self-care (01) ==
PROVIDERS: PCP Internal Medicine; Visit Provider Surgery Vascular Surgery
DX: I83.11 Varicose veins of right lower extremity with inflammation (principal)
CPT/HCPCS: 99204

== ENCOUNTER → 2024-04-14 14:06 | Outpatient (BNVA) | payer OTHER, SELFPAY | PROVIDERS: PCP Internal Medicine; Visit Provider Surgery Vascular Surgery | DX: I83.11 Varicose veins of right lower extremity with inflammation (principal); I83.811 Varicose veins of right lower extremity with pain; E66.01 Morbid (severe) obesity due to excess calories; Z79.899 Other long term (current) drug therapy | CPT/HCPCS: 99202 ==

== ENCOUNTER 2024-05-11 08:29 | Outpatient (REF) | payer OTHER, SELFPAY ==
--- NOTE | ~2024-05-11 | US_ITS ---
EXAMINATION: US LOWER EXTREMITY VENOUS (REFLUX EXAM), BILATERAL CLINICAL INDICATION: Varicose veins of right lower extremity with inflammation COMPARISON: Ultrasound venous duplex of the bilateral lower extremities dated 02/29/2024. TECHNIQUE: Color flow triplex imaging and compression Doppler was performed to evaluate both the deep and the superficial systems bilaterally. To evaluate the superficial system, the examination was performed in the upright position. Color-flow Doppler ultrasound and compression ultrasound were utilized. In addition, maneuvers were utilized to demonstrate reflux. FINDINGS: 1. DEEP VENOUS ULTRASOUND OF THE RIGHT LOWER EXTREMITY: Common Femoral Vein: Compressible, normal respiratory variation and augmented flow. Femoral Vein: Compressible, normal color flow and augmentation. Popliteal Vein: Compressible, normal augmentation. Deep Reflux: There is no evidence of reflux in the deep system in either the common femoral vein, superficial femoral or the popliteal vein. There is no evidence of a Reyes's cyst. 2. SUPERFICIAL ULTRASOUND WITH DOPPLER OF RIGHT LOWER EXTREMITY: GREAT SAPHENOUS VEIN: Saphenofemoral Junction: 0.5 cm; Reflux: 0 ms Proximal Thigh: 0.8 cm; Reflux: 0 ms Mid Thigh: 0.5 cm; Reflux: 0 ms Above Knee: 0.4 cm; Reflux: 0 ms At Knee: 0.5 cm; Reflux: 0 ms Below Knee: 0.5 cm; Reflux: 0 ms Mid Calf: 0.5 cm; Reflux: 0 ms Ankle: 0.4 cm; Reflux: 0 ms SMALL SAPHENOUS VEIN: Saphenopopliteal Junction: 0.3 cm; Reflux: 0 ms Proximal: 0.3 cm; Reflux: 0 ms Distal: 0.4 cm; Reflux: 0 ms PERFORATORS: Location: Distal thigh Size: 0.2; Reflux: 0 ms Location: PTV mid Size: 0.3; Reflux: 0 ms VARICOSITIES: Location: Mid thigh Size: 0.5; Reflux: 0 ms Location: At knee Size: 0.4; Reflux: 0 ms 3. DEEP VENOUS ULTRASOUND OF THE LEFT LOWER EXTREMITY: Common Femoral Vein: Compressible, normal respiratory variation and augmented flow. Femoral Vein: Compressible, normal color flow and augmentation. Popliteal Vein: Compressible, normal augmentation. Deep Reflux: There is no evidence of reflux in the deep system in either the common femoral vein, superficial femoral or the popliteal vein. There is no evidence of a Reyes's cyst. 4. SUPERFICIAL ULTRASOUND WITH DOPPLER OF LEFT LOWER EXTREMITY: GREAT SAPHENOUS VEIN: Saphenofemoral Junction: 0.6 cm; Reflux: 0 ms Proximal Thigh: 0.5 cm; Reflux: 0 ms Mid Thigh: 0.4 cm; Reflux: 0 ms Above Knee: 0.4 cm; Reflux: 0 ms At Knee: 0.5 cm; Reflux: 0 ms Below Knee: 0.5 cm; Reflux: 0 ms Mid Calf: 0.4 cm; Reflux: 0 ms Ankle: 0.4 cm; Reflux: 0 ms SMALL SAPHENOUS VEIN: Saphenopopliteal Junction: 0.4 cm; Reflux: 0 ms Proximal: 0.3 cm; Reflux: 0 ms Distal: 0.3 cm; Reflux: 788 ms PERFORATORS: Location: SSV mid Size: 0.2; Reflux: 0 ms Location: SSV mid Size: 0.3; Reflux: 0 ms Location: FV mid Size: 0.3; Reflux: 0 ms Location: FV mid Size: 0.3; Reflux: 0 ms Location: FV Distal Size: 0.3; Reflux: 0 ms Location: At knee Size: 0.2; Reflux: 0 ms VARICOSITIES: Location: SSV proximal Size: 0.4; Reflux: 0 ms Location: At knee Size: 0.3; Reflux: 0 ms Location: Proximal calf Size: 0.3; Reflux: 0 ms US/US venous duplex LE BI IMPRESSION: 1. No evidence of deep venous thrombosis or reflux in the bilateral lower extremities. 2. No evidence of superficial venous reflux in the right great saphenous vein, right small saphenous vein, and left great saphenous vein. 3. Focal incompetence of the distal left small saphenous vein at the level of the ankle with reflux measuring 788 ms. 4. Multiple perforators varicosities in the bilateral lower extremities. Electronically signed by: Anisa Timmons MD 05/15/2024 12:20 PM EDT
== END 2024-05-11 08:30 | disposition home or self-care (01) ==
LOC: HO.US 08:29
PROVIDERS: Visit Provider Surgery Vascular Surgery
DX: I83.11 Varicose veins of right lower extremity with inflammation (principal)
CPT/HCPCS: 93970

== ENCOUNTER 2024-06-09 10:02 | Outpatient (AMB) | payer OTHER, SELFPAY ==
--- NOTE | 2024-06-09 10:09 | A.OFFVIS_ITS ---
Intake Visit Reasons: Follow up [facility] 05/11/24 Intake Note: Patient presents for follow up [facility] 05/11/24. He is concerned about his leg swelling. Allergies dog dander Allergy (Mild, Verified 06/09/24 10:13) itching sneezing HPI HPI Follow up [facility] 05/11/24: Details: Very pleasant 39-year-old gentleman presents for follow-up regarding venous insufficiency testing he does have occasional swelling but appears to be due to his noncompliance. In addition he is morbidly obese with a BMI nearly of 60. He reports that his legs do do better when he is compliant with his diuretics and blood pressure meds but he occasionally has life issues and does not take them. He now presents for routine follow-up with venous insufficiency testing. [facility] Medical History (Updated 06/10/24 @ 11:10 by Johnny Ch MD) Varicose veins of right lower extremity with inflammation Cellulitis Prediabetes Hypertension Leg edema Obesity Pulmonary embolism Social History Household Members Other:: mother Housing: House Do you presently have visiting nurse or other home services: No Alcohol intake: current Patient Tobacco Use Status: Never used Tobacco service: No Review of Systems Const All systems reviewed & are unremarkable except as noted in HPI and below Reports no additional complaints ENT Reports Normal hearing present Card Denies chest pain, Denies chest pain at rest, Denies chest pain with activity and Denies pedal edema Resp Denies cough GI Denies abdominal pain Musc Denies abnormal gait, Denies muscle cramps and Denies radiating pain into limb Skin/Breast Denies skin ulcer and Denies wounds Neuro Reports Normal hearing present and Denies abnormal gait Psych Reports no additional complaints Physical Exam Const General: cooperative, healthy appearing and comfortable Orientation/consciousness: oriented to person, oriented to place and oriented to time HEENT Head: Yes normal to inspection Neck Neck: Yes normal visual inspection Carotids: no bruits Chest Chest palpation & inspection: normal inspection of the chest Resp Effort & Inspection: normal respiratory effort and able to speak in complete sentences Auscultation: clear to auscultation bilaterally, no crackles, no rales, no rhonchi and no wheezes Cardio Rate: regular rate Rhythm: regular rhythm Heart sounds: S1 normal heart sound present and S2 normal heart sound present Bruits: no carotid bruits Peripheral pulses: Peripheral pulses 2+ throughout GI Inspection: Yes normal to inspection Skin Wounds: no wounds Hair: normal Neuro General: oriented to person, oriented to place and oriented to time Cranial nerves: Yes CN's II-XII intact bilaterally and Yes Normal hearing present Cognition (Neuro): normal cognition Motor exam (neuro): 5/5 motor strength present throughout Extrem Other: venous exam: +2 edema General: No clubbing, No cyanosis and Yes edema Psych Appearance: grossly normal Mental Status: mental status grossly normal Speech and movement: Normal speech and movement present Results Reviewed Results Reviewed: Brief summary of venous insufficiency testing is as follows: right great saphenous vein: negative right small saphenous vein: negative right accessory vein: none present left great saphenous vein: negative left small saphenous vein: negative left accessory vein: none present Please note there is no evidence of any venous aneurysms or significant tortuosity Assessment & Plan Assessment & Plan (1) Leg edema: Code(s): R60.0 - Localized edema Category: Medical Plan: In short patient is negative for any significant venous insufficiency. Does have significant edema. This may be multifactorial in addition to his noncompliance with medications his morbid obesity. I did have a aayush sit down discussion about his morbid obesity in the need for weight loss. He did express an understanding of this but reports that he has many life issues that often prevents him from being more compliant. I did suggest a referral to our bariatric team but would like to hold off for now. Happy to assist in any way possible. At the current time it does not appear to be vascular in nature. Will follow up with us on an as-needed basis. Thank you for allowing us to assist in his care. Coding Level of Care Code Est Pt Level 4 (99901) Diagnoses Leg edema R60.0
== END 2024-06-09 10:39 | disposition home or self-care (01) ==
PROVIDERS: PCP Internal Medicine; Visit Provider Surgery Vascular Surgery
DX: R60.0 Localized edema (principal)
CPT/HCPCS: 99214

== ENCOUNTER → 2024-06-09 10:02 | Outpatient (BNVA) | payer OTHER, SELFPAY | PROVIDERS: PCP Internal Medicine; Visit Provider Surgery Vascular Surgery | DX: R60.0 Localized edema (principal); E66.9 Obesity, unspecified; Z68.43 Body mass index [BMI] 50.0-59.9, adult; Z91.199 Patient's noncompliance with other medical treatment and regimen due to unspecified reason | CPT/HCPCS: 99212 ==